=== PATIENT | female | born 1975 | race Caucasian/White ===

== ENCOUNTER → 2019-12-22 11:35 | Outpatient (CLI) | payer BC, SELFPAY ==
--- NOTE | ~2019-12-22 | XR_ITS ---
EXAMINATION: XR wrist LT min 3V DATE: 12/22/2019 11:46 INDICATION: Left wrist pain. Fall. TECHNIQUE: 4 views of left wrist were obtained. COMPARISON: None. FINDINGS: Bone alignment is normal. No fracture. 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 IMPRESSION: 1. No fracture. Reviewed, dictated and finalized at location A. CAL RADIATION DOSIMETRIST IMPRESSION: 1. No fracture.
== END ==
PROVIDERS: PCP Physician Assistant; Visit Provider Physician Assistant
DX: M25.532 Pain in left wrist (principal)
CPT/HCPCS: 73110

== ENCOUNTER → 2020-09-01 17:54 | Outpatient (CLI) | payer BC, SELFPAY ==
--- NOTE | ~2020-09-01 | MM_ITS ---
EXAMINATION: MM screening fabi BI w katja HISTORY: Screening TECHNIQUE: Craniocaudal and mediolateral oblique 3-D tomosynthesis images were obtained and synthetic 2-D images were generated. CAD analysis was submitted and interpreted. COMPARISON: Comparison to multiple prior studies sequentially, with oldest reviewed study dated 05/05. BREAST PARENCHYMAL COMPOSITION: There are scattered areas of fibroglandular density. FINDINGS: There is no evidence of suspicious mass, calcification, or architectural distortion to sugg est malignancy in either breast. There has been no suspicious interval change. IMPRESSION: 1. No mammographic evidence of malignancy. 2. Recommend routine screening mammography in one year. BI-RADS Category 1: Negative Reviewed, dictated and finalized at location A.
== END ==
PROVIDERS: PCP Family Medicine; Visit Provider Nurse Practitioner Obstetrics & Gynecology
DX: Z12.31 Encounter for screening mammogram for malignant neoplasm of breast (principal)
CPT/HCPCS: 77063; 77067

== ENCOUNTER 2021-03-28 13:31 | Outpatient (CLI) | payer BC, SELFPAY ==
--- NOTE | ~2021-03-28 | MMUS_ITS ---
EXAMINATION: MM diagnostic fabi LT w katja, US breast LT limited HISTORY: Palpable lump at the 6:00 location of the left breast. TECHNIQUE: Craniocaudal, mediolateral, and mediolateral oblique 3-D tomosynthesis images of the left breast were performed and synthetic 2-D images were generated. CAD analysis was submitted and interpr eted. High resolution limited left breast ultrasound was performed. COMPARISON: 09/01/2020, 07/29/2019, 07/07/2018, 06/14/2017 BREAST PARENCHYMAL COMPOSITION: There are scattered areas of fibroglandular density. FINDINGS: MAMMOGRAPHIC FINDINGS: No mammographic correlate identified for the reported palpable abnormality of the left breast. There is no suspicious mass, calcification, or architectural distortion. ULTRASOUND: There is no evidence of focal abnormal solid or cystic mass in the vicinity of the reported palpable abnormality of concern. IMPRESSION: 1. No specific mammographic or sonographic correlate is identified for the reported palpable abnormal ity of concern. Further evaluation at this time should be based on clinical assessment. Continued fol low-up physical examination is recommended. 2. Recommend routine screening mammography. BI-RADS Category 1: Negative Reviewed, dictated and finalized at location A. IMPRESSION: 1. No specific mammographic or sonographic correlate is identified for the repo rted palpable abnormality of concern. Further evaluation at this time should be based on clinical assessment. Continued follow-up physical examination is christiano mmended. 2. Recommend routine screening mammography. BI-RADS Category 1: Negative
== END 2021-03-28 13:32 | disposition home or self-care (01) ==
LOC: ANHIMG 13:34
PROVIDERS: PCP Family Medicine; Visit Provider Nurse Practitioner Obstetrics & Gynecology
DX: N63.20 Unspecified lump in the left breast, unspecified quadrant (principal)
CPT/HCPCS: 76642; 77061; 77065; G0279

== ENCOUNTER → 2021-09-15 12:50 | Outpatient (CLI) | payer BC, SELFPAY ==
--- NOTE | ~2021-09-15 | MM_ITS ---
EXAMINATION: MM screening fabi BI w katja HISTORY: Screening mammogram TECHNIQUE: Craniocaudal and mediolateral oblique 3-D tomosynthesis images were obtained and synthetic 2-D images were generated. CAD analysis was submitted and interpreted. COMPARISON: 03/28/2021 diagnostic left mammogram and limited left breast ultrasound 09/01/2020, 07/29/2019, 07/07/2018 bilateral screening mammogram examinations BREAST PARENCHYMAL COMPOSITION: There are scattered areas of fibroglandular density. FINDINGS: There is no evidence of suspicious mass, calcification, or architectural distortion to sugg est malignancy in either breast. There has been no suspicious interval change. IMPRESSION: 1. No mammographic evidence of malignancy. 2. Recommend routine screening mammography in one year. BI-RADS Category 1: Negative Reviewed, dictated and finalized at location A.
== END ==
PROVIDERS: Visit Provider Nurse Practitioner Obstetrics & Gynecology
DX: Z12.31 Encounter for screening mammogram for malignant neoplasm of breast (principal)
CPT/HCPCS: 77063; 77067

== ENCOUNTER 2021-11-21 00:06 | Day surgery (SDC) | payer OTHER, SELFPAY ==
[2021-10-26 09:22] VITALS: BMI 35.3
--- NOTE | 2021-11-06 13:34 | PC.NURSE ---
Spoke with pt re rescheduled colonoscopy. Pt confirmed no changes to home medications or health history since previous PAT phone call completed on 10/26/2021. Pt verbalized understanding of updated arrival/procedure times.
--- NOTE | 2021-11-21 12:13 | WPDGICN ---
Assessment and Plan Assessment and plan (1) Family history of colonic polyps: Code(s): Z83.71 - Family history of colonic polyps Status: Acute Assessment and Plan: Patient has a family history of colon polyps in her mother colon cancer in her grandmother. Neoplasia screening advised. Further recommendations will be given after endoscopy. GI Consult Note Consult date/time: 11/21/21 12:13 HPI: Sarai Varner is a 46 year old female Presents for screening colonoscopy. Patient's current weight appetite bowel movements are normal. She denies abdominal pain. She has had no bleeding. She states her bowel habits are normal aside from preparation for endoscopy. Family history is significant her grandmother had colon cancer mother had colon polyps. She presents today for neoplasia screening. Review of Systems Review of Systems: All systems reviewed & are unremarkable except as noted in HPI and below PMFSH Social History Social History Smoking status: Never smoker Alcohol intake: never Substance use: never Substance use type: does not use Living arrangements: with family Spiritual care concerns: No Meds Home Medications and Allergies Home Medications Medication Instructions Recorded Confirmed Type ibuprofen 400 mg PO DAILY 10/26/21 11/06/21 History montelukast 10 mg PO DAILY 10/26/21 11/06/21 History venlafaxine 37.5 mg PO DAILY 10/26/21 11/06/21 History zolmitriptan 5 mg PO DAILY 10/26/21 11/06/21 History Allergies Allergy/AdvReac Type Severity Reaction Status Date / Time doxycycline Allergy Intermediate HEADACHE,SEVERE Verified 11/06/21 13:33 N&V BEE STINGS Allergy Intermediate SWELLING Uncoded 11/06/21 13:33 ENVIRONMENTAL ALLERGIES Allergy Mild Sneezing Uncoded 11/06/21 13:33 SHELLFISH Allergy SEVERE N&V Uncoded 11/06/21 13:33 Exam Narrative: Physical exam reveals patient to be alert oriented x3 HEENT exam unremarkable. Patient is anicteric. Lungs are clear to auscultation and percussion. Heart is without murmur or extra sounds. Abdominal exam bowel sounds present soft nontender with no organomegaly. Digital external rectal exam is normal.
[2021-11-21 12:20] VITALS: BP 132/79; PULSE 115; RESP 20; TEMP 36.8; O2SAT 100; BMI 35.1
[2021-11-21] MEDS: LACTATED RINGERS 1,000 ML 150 ML IV CONT (12:29)
--- NOTE | 2021-11-21 12:29 | WPDANESEPPF ---
Anes - Initial Pre Proc Eval Procedure: Operation Date: 11/21/21 13:30 Proposed Procedures p Colonoscopy - Riky Cruz MD Date/Time: 11/21/21 12:29 Surgeon: Riky Cruz MD Pre Op Diagnosis: diarrhea, IBS Patient Data Age: 46 Gender: F Height: 1.52 m Weight: 81.5 kg Last Vital Signs Temp 36.8 C 11/21/21 12:20 Pulse 115 H 11/21/21 12:20 Resp 20 11/21/21 12:20 BP 132/79 11/21/21 12:20 Pulse Ox 100 11/21/21 12:20 Allergies Allergy/AdvReac Type Severity Reaction Status Date / Time doxycycline Allergy Intermediate HEADACHE,SEVERE Verified 11/06/21 13:33 N&V BEE STINGS Allergy Intermediate SWELLING Uncoded 11/06/21 13:33 ENVIRONMENTAL ALLERGIES Allergy Mild Sneezing Uncoded 11/06/21 13:33 SHELLFISH Allergy SEVERE N&V Uncoded 11/06/21 13:33 Home Medications Medication Instructions Recorded Confirmed Type ibuprofen 400 mg PO DAILY 10/26/21 11/06/21 History montelukast 10 mg PO DAILY 10/26/21 11/06/21 History venlafaxine 37.5 mg PO DAILY 10/26/21 11/06/21 History zolmitriptan 5 mg PO DAILY 10/26/21 11/06/21 History Patient hx anesthesia problems: none Family hx anesthesia problems: none Results Review: All pre-operative results and documents have been reviewed as part of the pre-operative evaluation. [facility] Past Medical History Medical History (Updated 11/21/21 @ 12:30 by Marbin Cox DO) Anxiety Migraine Social History Social History Smoking status: Never smoker Alcohol intake: never Substance use: never Substance use type: does not use Living arrangements: with family Spiritual care concerns: No Anes - Eval Final PreProcedure Day of Procedure 11/21/21 12:29 Patient weight: obese Heart: regular rate and rhythm Lungs: clear to auscultation and normal air movement Airway: Mallampati scale class II Neurological: alert and oriented Last oral intake: >/= 8 hours ASA classification: II Emergent: no Anesthetic plan: proceed Anesthesia type and monitoring: general GIVS and standard monitoring Results Review: All pre-operative results and documents have been reviewed as part of the pre-operative evaluation. Informed Consent: The patient's anesthetic plan and its attendant risks and benefits were discussed with the patient/family/POA. Questions were solicited and answers provided to the satisfaction of the patient/family/POA.
[2021-11-21 13:36] VITALS: BP 102/74; PULSE 100; RESP 29; O2SAT 100
[2021-11-21 13:46] VITALS: BP 121/85; PULSE 101; RESP 18; O2SAT 100
[2021-11-21 13:56] VITALS: BP 118/85; PULSE 98; RESP 18; O2SAT 100
== END 2021-11-21 14:09 | disposition home or self-care (01) ==
PROVIDERS: PCP Family Medicine; Visit Provider Internal Medicine Gastroenterology
PROC: 0DJD8ZZ Inspection of Lower Intestinal Tract, Via Natural or Artificial Opening Endoscopic (ICD-10-PCS; CPT 45378; principal; 2021-11-21 13:30)
DX: Z12.11 Encounter for screening for malignant neoplasm of colon (principal); Z83.71 Family history of colonic polyps; R19.7 Diarrhea, unspecified; F41.9 Anxiety disorder, unspecified; K58.9 Irritable bowel syndrome, unspecified; E66.9 Obesity, unspecified; Z68.35 Body mass index [BMI] 35.0-35.9, adult
CPT/HCPCS: 45378; J2704; J7120

== ENCOUNTER → 2021-12-16 00:54 | Outpatient (CLI) | payer OTHER, SELFPAY ==
[2021-12-16 17:11] LABS: SARS-CoV-2 RNA PCR Negative
== END ==
PROVIDERS: PCP Family Medicine; Visit Provider Physician Assistant
DX: R68.89 Other general symptoms and signs (principal); Z20.822 Contact with and (suspected) exposure to COVID-19
CPT/HCPCS: C9803; U0003; U0005

== ENCOUNTER → 2022-04-17 16:42 | Outpatient (CLI) | payer OTHER, SELFPAY ==
--- NOTE | ~2022-04-17 | XR_ITS ---
EXAMINATION: XR hand LT min 3V INDICATION: Left and pain TECHNIQUE: Three views of the left hand are obtained. COMPARISON: 12/22/2019 FINDINGS: There is unchanged mild osteoarthritis at the first metacarpophalangeal joint. Bone alignme nt is normal. There is no fracture. The soft tissues are unremarkable. IMPRESSION: 1. No acute osseous abnormality. Reviewed, dictated and finalized at location F.
--- NOTE | ~2022-04-17 | XR_ITS ---
EXAMINATION: XR wrist LT min 3V DATE: 04/17/2022 17:00 INDICATION: Left wrist pain TECHNIQUE: Posteroanterior, ulnar deviation, oblique, and lateral views of the left wrist were obtain ed. COMPARISON: 12/22/2019 FINDINGS: Bone alignment is normal. There is no fracture. The soft tissues are unremarkable. IMPRESSION: 1. No acute osseous abnormality. Reviewed, dictated and finalized at location F.
== END ==
PROVIDERS: PCP Family Medicine; Visit Provider Family Medicine
DX: M25.532 Pain in left wrist (principal)
CPT/HCPCS: 73110; 73130

== ENCOUNTER → 2022-12-12 12:24 | Outpatient (CLI) | payer OTHER, SELFPAY ==
--- NOTE | ~2022-12-12 | MM_ITS ---
EXAMINATION: MM screening fabi BI w katja HISTORY: Screening mammogram TECHNIQUE: Craniocaudal and mediolateral oblique 3-D tomosynthesis images were obtained and synthetic 2-D images were generated. CAD analysis was submitted and interpreted. COMPARISON: 09/15/2021 bilateral screening mammogram 03/28/2021 diagnostic left mammogram and limited left breast ultrasound 09/01/2020 bilateral screening mammogram BREAST PARENCHYMAL COMPOSITION: There are scattered areas of fibroglandular density. FINDINGS: There is no evidence of suspicious mass, calcification, or architectural distortion to sugg est malignancy in either breast. There has been no suspicious interval change. IMPRESSION: 1. No mammographic evidence of malignancy. 2. Recommend routine screening mammography in one year. BI-RADS Category 1: Negative Reviewed, dictated and finalized at location A. 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
== END ==
PROVIDERS: PCP Family Medicine; Visit Provider Nurse Practitioner Obstetrics & Gynecology
DX: Z12.31 Encounter for screening mammogram for malignant neoplasm of breast (principal)
CPT/HCPCS: 77063; 77067

== ENCOUNTER 2023-06-26 17:02 | Outpatient (CLI) | payer OTHER, SELFPAY ==
--- NOTE | ~2023-06-26 | US_ITS ---
EXAMINATION: US venous doppler [facility] DATE: 06/26/2023 17:49 INDICATION: deep vein thrombosis . TECHNIQUE: Grayscale images without and with compression and Doppler images of the left lower extremi ty veins were obtained. COMPARISON: None FINDINGS: The left common femoral vein, profunda (deep) femoral vein, femoral vein, popliteal vein, peroneal v ein, posterior tibial veins, gastrocnemius vein, and greater saphenous vein are patent. IMPRESSION: Patent left lower extremity veins. No evidence of deep venous thrombosis. Reviewed, dictated and finalized at location K.
== END 2023-06-26 17:03 | disposition home or self-care (01) ==
PROVIDERS: PCP Family Medicine; Visit Provider Physician Assistant
DX: I82.409 Acute embolism and thrombosis of unspecified deep veins of unspecified lower extremity (principal)
CPT/HCPCS: 93971

== ENCOUNTER 2024-02-27 10:46 | Outpatient (CLI) | payer OTHER, SELFPAY ==
--- NOTE | ~2024-02-27 | MM_ITS ---
EXAMINATION: MM screening fabi BI w katja HISTORY: Screening mammogram TECHNIQUE: Craniocaudal and mediolateral oblique 3-D tomosynthesis images were obtained and synthetic 2-D images were generated. CAD analysis was submitted and interpreted. COMPARISON: 12/12/2022, 09/15/2021 bilateral screening mammogram examinations BREAST PARENCHYMAL COMPOSITION: There are scattered areas of fibroglandular density. FINDINGS: Stable bilateral benign opacities. There is no evidence of suspicious mass, calcification, or architectural distortion to suggest malignancy in either breast. There has been no suspicious inte rval change. IMPRESSION: 1. No mammographic evidence of malignancy. 2. Recommend routine screening mammography in one year. BI-RADS Category 2: Benign finding(s). Reviewed, dictated and finalized at location A.
== END 2024-02-27 10:47 ==
PROVIDERS: PCP Nurse Practitioner Obstetrics & Gynecology; Visit Provider Nurse Practitioner Obstetrics & Gynecology
DX: Z12.31 Encounter for screening mammogram for malignant neoplasm of breast (principal)
CPT/HCPCS: 77063; 77067

== ENCOUNTER 2025-04-21 08:33 | Outpatient (CLI) | payer OTHER, SELFPAY ==
--- NOTE | ~2025-04-21 | MR_ITS ---
MRI of the right knee Clinical history: Meniscus tear Technique: Coronal proton density and proton density-weighted images, sagittal proton-density and T2 fat-sat images, and axial proton-density fat-saturated images were acquired. Findings: Anterior and posterior cruciate ligaments are intact. Medial collateral ligament and the la teral collateral ligament complex are intact. Popliteus tendon is intact. There is large radial tear at the posterior root of the medial meniscus. No lateral meniscal tear see n. There is mild to moderate chondromalacia at the patellar apex. There is patchy moderate chondral vianney liza extensively involving the femoral trochlea. There is extensive high-grade chondromalacia on both sides of the medial compartment. There is minimal chondral thinning at the lateral joint line. Small tricompartmental osteophytes are present. Extensor mechanism is intact. No significant joint effusion or Ellis's cyst. Impression: Large radial tear at the posterior root of the medial meniscus. 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 Extensive high-grade chondro malacia of the medial compartment. Please see details above. Reviewed, dictated and finalized at location . Impression: Large radial tear at the posterior root of the medial meniscus. 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 Extens humza high-grade chondromalacia of the medial compartment. Please see details abo ve.
== END 2025-04-21 08:34 | disposition home or self-care (01) ==
PROVIDERS: PCP Family Medicine; Visit Provider Orthopaedic Surgery
DX: S83.241A Other tear of medial meniscus, current injury, right knee, initial encounter (principal); M94.261 Chondromalacia, right knee; X58.XXXA Exposure to other specified factors, initial encounter
CPT/HCPCS: 73721

== ENCOUNTER 2025-05-10 13:54 | Outpatient (CLI) | payer OTHER, SELFPAY ==
--- NOTE | ~2025-05-10 | MM_ITS ---
EXAMINATION: MM screening [facility] BI w katja HISTORY: Screening mammogram TECHNIQUE: Craniocaudal and mediolateral oblique 3-D tomosynthesis images were obtained and synthetic 2-D images were generated. CAD analysis was submitted and interpreted. COMPARISON: 02/27/2024, 12/12/2022, 09/15/2021 BREAST PARENCHYMAL COMPOSITION:Not Dense. There are scattered areas of fibroglandular density. FINDINGS: No suspicious mass, calcification, or architectural distortion are identified in either makayla ast to suggest malignancy. There has been no suspicious interval change. IMPRESSION: No mammographic evidence of malignancy. Recommend routine screening mammography in one year. BI-RADS Category 1: Negative Reviewed, dictated and finalized at location .
== END 2025-05-10 13:55 | disposition home or self-care (01) ==
LOC: MICIMG 13:55
PROVIDERS: PCP Family Medicine; Visit Provider Nurse Practitioner
DX: Z12.31 Encounter for screening mammogram for malignant neoplasm of breast (principal)
CPT/HCPCS: 77063; 77067

== ENCOUNTER 2025-06-04 00:47 | Day surgery (SDC) | payer OTHER, SELFPAY ==
[2025-06-02 14:46] VITALS: BMI 38.3
--- NOTE | 2025-06-02 15:14 | PC.NURSE ---
Report to the Outpatient Waiting Room, entrance under the green pavilion located off [facility], at time 07:00AM on date _06/04/25 . Planned Procedure Time: _09:00AM .? Time changes happen often and if your time is changed the preop area will call you the afternoon before. - You and your visitor will be asked to self-screen and do not enter if you have any COVID symptoms. Please call surgeon if you need to reschedule. - A mask is optional within the hospital at this time. Patients may have clear liquids (water, carbonated beverages, clear teas, apple juice) until 3 hours prior to surgery with a maximum of 20 ounces. - No food from midnight until time of surgery and no smoking, or chewing tobacco (or any form of nicotine). No chewing gum, candy or mints. Take only the following medications with a SIP of water on the morning of surgery: _APRAZOLAM_; QULIPTA (IF DESIRED) DO NOT STOP ANY OF YOUR OTHER PRESCRIPTION MEDICATIONS PRIOR TO SURGERY EXCEPT THE FOLLOWING Hold all vitamins and supplements for 3 days per anesthesiologist. Medications to discontinue per physician Date to take last dose Please no make-up, nail occitan, hairspray, perfume, deodorant, or body powder the day of surgery.? No jewelry (including any body piercings) or valuables the day of surgery, leave them at home.? Please take a shower or bath the night before, or the morning of, surgery with an antibacterial soap.? Wear comfortable, loose fitting clothing.? - Jewelry must be removed prior to entering the operating room.? Rings and piercings that are not removed may be cut off. - The hospital will not accept responsibility for valuables.? - Please leave all valuables, including medications, at home the day of surgery. If you are going home after surgery, a licensed truck driver's offsider must drive you home.? - NO public transportation without another adult if you receive anesthesia. - We recommend that an adult stay with you for 24 hours following discharge. - We also recommend that you do not drive, make important decision, drink alcoholic beverages, or take any drugs that were not prescribed by your health care provider for at least 24 hours after your discharge time. Follow any additional instructions given to you from your surgeon. Telephone instructions given to _FEBRUARY and asked if any additional questions and then verbalized understanding. Patient advised to call surgeon office or pre surgery nurse liaison [phone] if any additional questions.
[2025-06-04] VITALS (10 sets, daily range): BP systolic 122–142; BP diastolic 57–78; PULSE 77–95; RESP 15–18; TEMP 36.2–37.1; O2SAT 97–100; BMI 38.5
--- OUTSIDE RECORDS SUMMARY | 2025-06-04 00:48 | XMS_ITS | Data Portability ---
Author Organization [place] [facility] [place] [facility], Main Office Address [address] [place] [address] Care Team Providers Care [employer] Science Tutor Name Role Phone ANTONIA LISA Primary Care Provider ANTONIA LISA Referring Provider Assessment Encounter Date Assessment Date Assessment LastModified by Organization Details LastModified Time 02/07/2023 02/07/2023 Patient returns knee pain right. She has an MRI scan that shows meniscal tear and symptoms suggesting that she has mechanical catching and locking in the knee and would like to proceed with arthroscopic intervention. She has failed conservative treatment will proceed per her request discussed risks benefits limitations and alternatives in detail. [email or web address] Not available 02/07/2023 11:21:11 03/19/2023 03/19/2023 Patient returns status post knee arthroscopy right. She had a tear posteriorly which I debrided she has got fairly significant degenerative change in the knee in the patellofemoral early as well as medially this is probably going to predispose her to knee replacement surgery at some point of note is the fact she is morbidly obese with a BMI of 40 and with the arthritis she has young age she needs to work on getting some weight down and avoid impact loading. We discussed this in detail I will see her back on an as-needed basis. The standpoint of her right knee at this point she can be dismissed. [email or web address] Not available 03/19/2023 14:54:11 09/05/2023 09/05/2023 The patient has [id number] primary osteoarthritis of the right knee joint she has had a previous knee arthroscopy partial medial meniscectomy was doing well until a new twisting injury to the knee. Talked about treatment options today in detail for now I have recommended a shot of cortisone and oral prednisone to see if we can calm down the pain. Hopefully she has just started up some osteoarthritis. Under sterile conditions I injected the patient's right knee joint in the office with 4 cc 0.5% ropivacaine and 20 mg of Kenalog. Patient tolerated the procedure well. I will see her back in a month if her symptoms continue to be significant we can talk about doing gel shots versus repeat MRI scan to see if she has a new meniscal injury. We will see how it goes. She can restart ibuprofen 800 mg t.i.d. after the prednisone is done we will get her prescription for this today. She voiced understanding and agrees above plan she will call for any further problems difficulties or questions. Not available 09/05/2023 14:37:09 10/03/2023 10/03/2023 The patient has resolving right knee pain as described. She does have some primary osteoarthritis no signs of a new meniscal tear noted today she is doing better after treatment. She states it is livable she is going to continue to use ibuprofen she will have her liver and kidney functions checked by her primary care physician if she continues to take these long-term. We talked about this in detail today. She will use ice and activity modification as necessary as well for now she is dismissed if she starts to have mechanical symptoms swelling or worsening pain she will call she voiced understanding agrees above plan she will call for any further problems difficulties or questions. Not available 10/03/2023 10:47:31 10/26/2024 10/26/2024 By today's x-ray and exam the patient is noted to have moderate primary osteoarthritis of the right knee more mild on the left. She does have some narrowing in the medial compartments of both knees as well as mild lateral facet wear and very small marginal osteophytes noted around the medial and lateral portions of the patellofemoral articulations. We talked about treatment options today in detail she would like to proceed with similar treatment to what she had for her right knee last year. At her request under sterile conditions I injected the patient's right knee joint in the office today with 4 cc 0.5% bupivacaine and 20 mg of Kenalog. Patient tolerated the procedure well. We will do a course of oral prednisone followed by ibuprofen 800 mg t.i.d. with food she will take this on a regular basis for at least a month. She will use it p.r.n. after that. She did very well with treatment for her right knee last year hopefully she will get the same benefit now with her left knee. She is aware that she has significant changes in the knee degenerative in nature and this could progress with time. Weight loss would certainly help also low impact exercise. I will see her back as needed we can do this again in 3 months if necessary. She voiced understanding agrees with the above plan she will call for any further problems difficulties or questions. We talked about low-impact exercise in detail today is a better option for her rather than walking for exercise Not available 10/26/2024 10:51:27 Plan of Treatment Reminders Order Date Submit Date Provider Last Modified By Organization Details Last Modified Time Details Appointments None recorded. Lab None recorded. Referral None recorded. Procedures injection/a spiration joint/bursa (PROC) 2023 024 [email or web address] In-Office Order, Internal Use Only DO Not Attach Compendium DO Not Attach Compendium, Do Not Delete/merge, [id number] 4 10:42:39 injection/a spiration joint/bursa (PROC) - in office procedure, administere d by provider 2022 023 [email or web address] In-Office Order, Internal Use Only DO Not Attach Compendium DO Not Attach Compendium, Do Not Delete/merge, [id number] 3 14:31:47 Surgeries knee arthroscopy with medial meniscectom y (SURG) 2022 023 [email or web address] [facility], [address] [place] [address], [address], 3 10:00:44 Imaging XR, knee 2023 024 [email or web address] [facility] [place], [address] [facility] [address], [place], [address], 4 11:28:24 Medication Orders prednisone 10 mg tablets in a dose pack [address] [id number], [address] [facility], [place], [place], [id number], 4 11:28:24 ibuprofen 800 mg tablet [address] [facility]95612, [address] [facility], [place], [place], [id number], 4 11:28:24 bupivacaine HCl 0.5 % (5 mg/mL) injection solution [address] [facility]04899, [address] [facility], [place], [place], [id number], 4 11:28:24 Kenalog 10 mg/mL suspension for injection [address] [facility]33705, [address] [facility], [place], [place], [id number], 4 11:28:24 Kenalog 10 mg/mL suspension for injection [address] [facility]34685, [address] [facility], [place], [place], [id number], 3 15:39:35 ropivacaine (PF) 5 mg/mL (0.5 %) injection solution [address] [facility]07358, [address] [facility], [place], [place], [id number], 3 15:39:35 prednisone 10 mg tablets in a dose pack 2022 023 [email or web address] [facility] #[id number], [address] [facility], [place], [place], [id number], 4 10:16:30 Patient TargetsNo targets recorded. Patient InstructionsNo instructions recorded. Reason for Referral None Reported. Results Created Date Observation Date Name Description Value Unit Range Abnormal Flag Note LastModifiedBy Organization Detail LastModifiedTime 01/25/20 23 XR, knee No observ ation record ed. [email or web address] [facility] [place] [address], [place], [address], 01/24/2023 10:56:30 01/31/20 23 01/29/2023 MRI, knee, w/o contr ast No observ ation record ed. [email or web address] [facility] [address], [place], [address], 01/30/2023 20:57:21 10/26/20 24 XR, knee No observ ation record ed. [email or web address] [facility] [place] [address], [place], [address], 10/26/2024 10:52:31 Result Notes None recorded. Problems Name Problem SNOMED Code Status Onset Date Resolution Date Notes Provider Name and Address Organization Details Recorded Time Pain of right knee joint 5438755071205 00 Active 2022 Anjelica Mauricio , ATC L null, [employer] 3 10:37:02 Tear of medial meniscus of knee 277347222 Active 2022 Nilton Pate MD [address], [address], [place], [address], [employer] 3 10:57:05 Morbid obesity 254443589 Active 2022 Nilton Pate MD [address], [address], [place], [address], [employer] 3 14:54:15 Osteoarthri tis of right knee joint 1913816353045 00 Active 2022 CRISTINA Malik [address], [place], [address], [employer] 3 14:37:18 Pain of left knee joint 4351893418403 07 [facility] 2023 [facility] [employer] [facility] 4 10:18:04 Bilateral osteoarthri tis of knees 5458667167339 07 Active 2023 CRISTINA Malik [address] [facility], [facility] [address], [place], [address], [facility] [employer] [facility] 4 10:52:42 Problem Notes None recorded. Procedures Surgical History Date Name Laterality Status Provider Name and Address Organization Details Recorded Time 3 Ortho - Cortisone Injection completed Nilton Pate MD [address] [facility], [facility] [address], [place], [address], [facility] [employer] [facility] 01/24/2023 10:55:21 Imaging Results None recorded. Procedure Notes None recorded. Medical Equipment None Reported. Allergies Allergen ID Allergen Name Allergen Category Reaction Reaction Severity Criticality Documentation Date Start Date Code Code System Note Provider Name and Address Organization Details Recorded Time 96507 hydrocodo ne Not available Not available Not available Not available 01/16/2023 5489 RxNorm Not Available [facility] 3 16:13:08 02386 doxycycli ne Not available Not available Not available Not available 01/16/2023 3640 RxNorm Not Available [facility] 3 16:13:08 01803 codeine medicatio n headache Not available Not available 10/26/2024 2670 RxNorm Meagan smith [facility] [employer] [facility] 4 10:15:52 Medications Name Sig Start Date Stop Date Status Note LastModified by Organization Details LastModified Time amoxicillin 500 mg capsule 09/05 completed Not Available Not Available Not Available promethazin e-DM 6.25 mg-15 mg/5 mL oral syrup TAKE 5 ML BY MOUTH EVERY 6 HOURS NEEDED FOR COUGH. MAX 30 ML / 24 HOUR 01/24 completed Not Available Not Available Not Available venlafaxine ER 37.5 mg capsule,ext ended release 24 hr TAKE 1 CAPSULE BY MOUTH EVERY DAY 10/26 completed Not Available Not Available Not Available prednisone 10 mg tablet active Not Available Not Available Not Available cefuroxime axetil 250 mg tablet 09/05 completed Not Available Not Available Not Available ketoconazol e 2 % shampoo SHAMPOO NECK/ FACE DAILY 10/26 completed Not Available Not Available Not Available trazodone 50 mg tablet TAKE 2 TABLETS BY MOUTH EVERY DAY AT BEDTIME 10/26 completed Not Available Not Available Not Available ibuprofen 800 mg tablet TAKE 1 TABLET BY MOUTH THREE TIMES DAILY active Not Available Not Available No t Available hydrocodone 5 mg-acetamin ophen 325 mg tablet 09/05 completed Not Available Not Available Not Available meloxicam 15 mg tablet 09/05 completed Not Available Not Available Not Available bupivacaine HCl 0.5 % (5 mg/mL) injection solution Take 20 mg by injection route. 2023 active Not Available Not Available Not Avai lable topiramate 25 mg tablet TK 2 TS PO BID 01/24 completed Not Available Not Available Not Available zolmitripta n 5 mg tablet 09/05 completed Not Available Not Available Not Available prednisone 10 mg tablets in a dose pack Take 1 tab by mouth, 3 times a day for 3 daysTake 1 tab by mouth 2 times a day for 2 daysTake 1 tab by mouth once a day for 1 day 2023 active Not Available Not Available Not Avai lable cefadroxil 500 mg capsule 09/05 completed Not Available Not Available Not Available alprazolam 0.5 mg tablet TAKE 1 TABLET BY MOUTH DAILY NEEDED FOR ANXIETY active Not Available Not Available No t Available propranolol 40 mg tablet 01/24 completed Not Available Not Available Not Available amoxicillin 875 mg tablet 09/05 completed Not Available Not Available Not Available citalopram 20 mg tablet Take 1 tablet every day by oral route. 01/24 completed Not Available Not Available Not Available prednisolon e acetate 1 % eye drops,suspe nsion 09/05 completed Not Available Not Available Not Available Kenalog 10 mg/mL suspension for injection Take 20 mg by injection route. 2023 active [facility]: 0003- 0494- 20 Not Available Not Available Not Available cephalexin 500 mg capsule TAKE 1 CAPSULE BY MOUTH TWICE DAILY FOR 10 DAYS active Not Available Not Available No t Available paroxetine 20 mg tablet TK 1 T PO QD 01/24 completed Not Available Not Available Not Available oseltamivir 75 mg capsule TK 1 C PO BID FOR 5 DAYS 01/24 completed Not Available Not Available Not Available tobramycin 0.3 % eye drops 09/05 completed Not Available Not Available Not Available propranolol ER 80 mg capsule,24 hr,extended release 10/26 completed Not Available Not Available Not Available montelukast 10 mg tablet TAKE 1 TABLET BY MOUTH DAILY IN THE EVENING active Not Available Not Available No t Available zolpidem 5 mg tablet 01/24 completed Not Available Not Available Not Available hydroxychlo roquine 200 mg tablet TAKE 1 TABLET BY MOUTH EVERY DAY 10/26 completed Not Available Not Available Not Available cefuroxime axetil 500 mg tablet TAKE 1 TABLET BY MOUTH EVERY 12 HOURS FOR 10 DAYS 10/26 completed Not Available Not Available Not Available piroxicam 20 mg capsule 01/24 completed Not Available Not Available Not Available naratriptan 2.5 mg tablet 01/24 completed Not Available Not Available Not Available amoxicillin 875 mg-potassiu m clavulanate 125 mg tablet TAKE 1 TABLET BY MOUTH EVERY 12 HOURS FOR 10 DAYS 01/24 completed Not Available Not Available Not Available clindamycin phosphate 1 % topical solution APPLY TO FACE TWICE DAILY NEEDED 10/26 completed Not Available Not Available Not Available escitalopra m 10 mg tablet TAKE 1 TABLET BY MOUTH DAILY active Not Available Not Available No t Available Sprintec (28) 0.25 mg-0.035 mg tablet 09/05 completed Not Available Not Available Not Available azelaic acid 15 % topical gel APPLY TO FACE TWICE DAILY 10/26 completed Not Available Not Available Not Available Prempro 0.45 mg-1.5 mg tablet TAKE 1 TABLET BY MOUTH DAILY 10/26 completed Not Available Not Available Not Available topiramate 50 mg tablet 01/24 completed Not Available Not Available Not Available tizanidine 4 mg capsule 09/05 completed Not Available Not Available Not Available metronidazo le 1 % topical gel 09/05 completed Not Available Not Available Not Available lidocaine (PF) 10 mg/mL (1 %) injection solution In office injection administe red by the provider 01/24 completed [facility]: 0409- 4276- 17 Not Available Not Available Not Available CitraNatal Assure 35 mg-1 mg-50 mg-300 mg oral pack 09/05 completed Not Available Not Available Not Available gatifloxaci n 0.5 % eye drops active Not Available Not Available Not Available ropivacaine (PF) 5 mg/mL (0.5 %) injection solution Take 20 mg by injection route. 2022 active [facility] [address]- 01 Not Available Not Available Not Available Soolantra 1 % topical cream NABEEL BID 01/24 completed Not Available Not Available Not Available Finacea 15 % topical foam NABEEL TO FACE BID 09/05 completed Not Available Not Available Not Available Qulipta 60 mg tablet TAKE 1 TABLET BY MOUTH DAILY active Not Available Not Available No t Available Paxlovid 300 mg (150 mg x 2)-100 mg tablets in a dose pack TAKE TWO 150MG TABLETS AND ONE 100MG TABLET BY MOUTH TWICE DAILY FOR 5 DAYS 01/24 completed Not Available Not Available Not Available Vitals Date Recorded Body height Body mass index (BMI) Body weight Provider Name and Address Organization Details Last Updated DateTime 02/07/2023 152.4 cm 40 kg/m2 69609.44 g Jada Greenecharmaine [employer] 02/07/2023 10:02:31 Date Recorded Body height Body mass index (BMI) Body weight Provider Name and Address Organization Details Last Updated DateTime 03/19/2023 152.4 cm 40 kg/m2 43582.44 g Jada Mayra, [employer] 03/19/2023 14:16:27 Date Recorded Body height Body mass index (BMI) Body weight Provider Name and Address Organization Details Last Updated DateTime 09/05/2023 152.4 cm 40 kg/m2 46138.44 g Jada Mayra, [employer] 09/05/2023 14:08:52 Date Recorded Body height Provider Name an d Address Organization Details Last Updated DateTime 10/03/2023 152.4 cm Meagan Mirandamons [employer] 10/03/2023 10:32:11 Date Recorded Body height Body mass index (BMI) Body weight Provider Name and Address Organization Details Last Updated DateTime 10/26/2024 152.4 cm 39.1 kg/m2 76469.47 g Meagan Hahn [place] [facility] 10/26/2024 10:15:25 Social History None recorded. Functional Status Question Answer Note LastModified by Organization D etails LastModified Time What is your level of alcohol consumption? None Information not available 01/24/2023 Mental Status None recorded. Family History Relationship Description Onset Age of this Age Resolved Age Notes LastModified by Organization Details LastModified Time Unspecified Relation Heart disease grandp arents Not available 01/24/2023 10:35:33 Unspecified Relation Diabetes mellitus grandm a Not available 01/24/2023 10:36:12 Mother Hypertensive disorder Not available 07/2023 10:35:51 Medical History Condition Response ARTHRITIS Y Gynecological HistoryNo gynecological history recorded. Obstetrics History GPAL:G 0 P 0 0 0 0 Past Encounters Encounter ID Performer Location Encounter Start Date Encounter Closed Date Diagnosis/Indication Diagnosis SNOMED-CT Code Diagnosis ICD10 Code Diagnosis Note [id number] Nilton Pate MD [facility] [place] [address] [place] [address] 01/24/2023 10:17:04 01/24/2023 11:05:08 Pain of right knee joint 7088719100 07558 M25.561 Tear of me dial meniscus of knee 429272593 S83.241A [id number] Nilton Pate MD [facility] [place] [address] [place] [address] 02/07/2023 09:58:07 02/07/2023 11:33:14 Pain of right knee joint 1113255359 87593 M25.561 Tear of me dial meniscus of knee 975377491 S83.241A [id number] Nilton Pate MD [facility] [place] [address] [place] [address] 03/19/2023 14:11:42 03/19/2023 15:21:11 Tear of medial meniscus of knee 041122450 S83.241A Postoperative visit 1836 37056 Z09 Morbid obesity 351783911 E66.01 [id number] Rico Law MD [facility] [place] [address] [place] [address] 09/05/2023 14:04:31 09/05/2023 14:34:36 Pain of right knee joint 3144915180 02100 M25.561 Tear of me dial meniscus of knee 203515036 S83.241A Osteoarthr itis of right knee joint 6514603273 71245 M17.11 [id number] Rico Law MD [facility] [place] [address] [place] [address] 10/03/2023 10:29:36 10/03/2023 10:44:22 Tear of medial meniscus of knee 486890414 S83.241A Osteoarthr itis of right knee joint 2678229039 05759 M17.11 Pain of ri ght knee joint 7765873874 75577 M25.147 [id number] Wesley Cooper MD [facility] [place] [address] [place] [address] 10/26/2024 10:00:05 10/26/2024 10:59:04 Pain of left knee joint 7482621331 28987 M25.562 Bilateral osteoarthritis of knees 0575812645 29568 M17.0 Health Concerns Section Related Observation LastModified by Organization Detai ls LastModified Time None Recorded Concern Status LastModified by Organization Details LastModified Time None Recorded Advance Directives Directive None Recorded Payers Insurance Date Sequence Insurance Name Policy Number Policy Kaplan Covered Member ID Kaplan Member ID Guarantor Name 10/26/[address] [facility] [id number] February Gardenia [id number] February Gardenia 01/23/2023 1 [facility]: OUT OF STATE - BLUE CARD [id number] Pedro Varner [id number] February Gardenia Notes Date Note Type Note Provider Name and Address Organization Details Recorded Time 02/07/2023 text/html Patient returns knee pain right. She remains symptomatic as catching locking and pain and mechanical symptoms in her right knee. Unfortunately she has not improved with conservative treatment. Nilton Pate MD [address] [place] [address], [address], [address], [facility] [employer] [facility] [employer] [facility] 02/07/2023 11:21:29 03/19/2023 text/html Patient returns status post knee arthroscopy right. Overall she is doing fine much of the pain is resolved she has a little swelling but she is getting around quite a bit better. Nilton Pate MD [address], [facility] [address], [place], [address], [facility] [employer] [facility] [employer] [facility] 03/19/2023 14:54:36 09/05/2023 text/html The patient retu rns with a new problem with her right knee. She had a knee arthroscopy in February of this year for partial medial meniscectomy she states it took a few months but her knee was finally feeling really good she was told at that time she did have primary osteoarthritis particularly the patellofemoral articulation she has some narrowing in the medial compartment as well. She was doing well until 2 weeks ago when she twisted on her knee felt a sudden pop since that time she has had significant pain in the medial compartment reports crepitation through the arc of motion no mateo locking or catching but certainly a catching sensation and pain medially. She walks with a limp states she has tried ibuprofen and activity modification without significant relief. She is worried that she has started her knee up again it does not calm down over the last 2 weeks she comes in today for initial evaluation treatment.Past medical history and previous x-rays reviewed in detail today with the patient. CRISTINA Malik [address], [facility] [address], [place], [address], [facility] [employer] [facility] [employer] [facility] 09/05/2023 14:37:44 10/03/2023 text/html Patient returns for recheck of her right knee. She had knee arthroscopy done by Dr. Pate earlier this year she then had a new injury when she twisted her knee and felt a sudden pop a lot of the pain was medially. She does have a lot of crepitation through the arc of motion in the subpatellar region she denied any mateo locking or catching but quite a bit of pain was walking with a limp. She had been on ibuprofen and used activity modification without significant relief. I saw her 1 month ago we did a shot of cortisone she took oral prednisone and resumed ibuprofen 800 mg t.i.d. with food. She states now her pain is about a 2 on a scale 1-10 when it is at its worst. Overall she states it is livable she knows she is always going to have some mild pain in the knee due to her pre-existing osteoarthritis. Overall has improved quite a bit comes in today for recheck and talk about further treatment options for the future if necessary. CRISTINA Malik [address] [facility], [place], [address], [place] [facility] 10/03/2023 10:47:46 10/26/2024 text/html Patient returns with a new problem today. She is complaining of left knee pain this has been ongoing for couple of months now and getting a little worse with time. Most of the pain is localized to the anterior and medial side of the left knee. I saw her I 1 year ago for her right knee for a similar issue. She was treated with cortisone and oral anti-inflammatory medication she did well with that. She states today her right knee is feeling pretty good now she has pain about a 5 on a scale of 1-10 in the left knee. Denies any specific trauma or injury she does do lots of walking she also walks her 85 lb dog which puts a lot of pull on the leash basically kind of drags her along. Sometimes after busy days she will note throbbing and aching medially also she sits for too long of a time her left knee will start to feel achy and stiff. When she gets up and gets moving it is a little better. She has tried [id number] Advil here and there she will take 2-4 pills a day. She has also tried icing but continues to have significant pain. She denies any locking or catching no mechanical symptoms she does note some grinding crepitation through the arc of motion but no swelling or effusion no sensation of instability. Despite conservative measures on her own at home her symptoms continue she comes in today for initial evaluation and treatment. The patient does have a history of bilateral knee arthroscopies her left knee with scope for partial medial meniscectomy back in 2013 the right knee was done in 2022. New past medical history sheet was reviewed and signed on the intake sheet of today's date drug allergies current medications family social history previous surgical history 10 point review of systems was reviewed and discussed in detail today with the patient. CRISTINA Malik [address] [facility], [facility] [address], [place], [id number], [facility] 10/26/2024 10:53:15 OBGyn Episode No OBEpisode recorded.
--- OUTSIDE RECORDS SUMMARY | 2025-06-04 00:48 | XMS_ITS | Data Portability ---
Author Organization [facility] Address [address] [place] [address] [place] [address] Care Team Providers Care Operations Research Manager Name Role Phone MARIA L ANTONIA Primary Care Provider [phone] Assessment Encounter Date Assessment Date Assessment LastModified by Organization Details LastModified Time 09/17/2022 09/17/2022 Annual gynecological exam performed. Patient will come back in a year unless there are new symptoms. Not available 09/17/2022 12:39:36 10/30/2023 10/30/2023 Annual gynecological exam performed. Patient will come back in a year unless there are new symptoms. [email or web address] Not available 10/30/2023 11:20:07 11/13/2024 11/13/2024 Annual gynecological exam performed. Patient will come back in a year unless there are new symptoms. Not available 11/13/2024 11:09:40 Plan of Treatment Reminders Order Date Submit Date Provider Last Modified By Organization Details Last Modified Time Details Appointments None recorded. Lab None recorded. Referral None recorded. Procedures None recorded. Surgeries None recorded. Imaging MAMMO, screening, digital, bilateral 2023 024 DESTINEY [facility], [address], [place], [address], 5 16:59:23 US, pelvis 2023 024 [email or web address] [facility], [address], [place], [address], 4 19:34:19 US, transvagina l 2023 024 [email or web address] [facility], [address], [address], [place], [address], 4 19:34:19 US, pelvis, complete 2023 024 [email or web address] [facility], [address], [place], [address], 4 11:17:38 MAMMO, screening, bilateral 2022 023 [email or web address] [facility], [address], [place], [address], 3 10:34:14 Medication Orders None recorded. Patient TargetsNo targets recorded. Patient InstructionsNo instructions recorded. Reason for Referral None Reported. 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 FINAL DIAGN OSIS: Negat humza for Intra epith elial Lesio n or Mauro nielsen (NIL) . Elect yanira zuñiga mathew d by DeLuc a, Eli, CT on 2021 at 6:23 PM ----- ----- ----- ----- ----- ----- ----- ----- ----- ----- ----- ----- ----- ----- ----- ----- ----- ---- HPV RESUL TS: HPV mRNA E6/E7 : No HPV mRNA Detec vinny NOTE: This high risk HPV mRNA assay detec ts fourt een high- risk HPV types (16, 18, 31, 33, 35, 39, 45, 51, 52, 56, 58, 59, 66, 68) witho ut diffe renti ation . COMME NT: Note: This speci men was revie wed by a Cytot echno logis t and/o r Patho logis t (as indic ated in this repor t) after evalu ation using the Thinp rep Imagi ng Syste m. CLINI CATRACHITO INFOR MATIO N: Menst rual Statu s: LMP (if appli cable ): Clini catrachito Histo ry/Pr eviou s Pap: Type of Neopl houston (if appli cable ): Signi fican t Clini catrachito Findi ngs: Other Histo ry: Hormo avnessa (if appli cable ): PAP EDUCA ALICIA L NOTE: The Pap Test is a scree abhilash test with an inher ent false negat humza rate. Liqui d-bas ed sampl ing may decre ase, but will not elimi dion, false negat humza resul ts. A negat humza resul t does not precl ude the prese nce and/o r devel opmen t of disea se, since the prese nce of abnor mal cells in the sampl e depen ds on the locat ion of the lesio n and sampl ing techn ique. Kelechi nued regul ar scree abhilash is the best metho d of cance r preve ntion . If repor vinny cytol ogic findi ng do not corre late with physi catrachito and/o r histo rical findi ngs, furth er inves tigat ion is recom amaya d, as clini ely warra nted. 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 FINAL DIAGN OSIS: Negat humza for Intra epith elial Belkis rojo or Mauro nielsen (NIL) . Elect yanira carmona d by Dinesh Jha , CT on 11/04 at 12:54 PM ----- ----- ----- ----- ----- ----- ----- ----- ----- ----- ----- ----- ----- ----- ----- ----- ----- ---- HPV RESUL TS: HPV mRNA E6/E7 : No HPV mRNA Detec vinny NOTE: This high risk HPV mRNA assay detec ts fourt een high- risk HPV types (16, 18, 31, 33, 35, 39, 45, 51, 52, 56, 58, 59, 66, 68) witho ut diffe renti ation . COMME NT: This speci men was revie wed by a Cytot echno logis t and/o r Patho logis t (as indic ated in this repor t) after evalu ation using the Thinp rep Imagi ng Syste m. CLINI CATRACHITO INFOR MATIO N: Menst rual Statu s: LMP (if appli cable ): Clini catrachito Histo ry/Pr eviou s Pap: Type of Neopl houston (if appli cable ): Signi fican t Clini catrachito Findi ngs: Other Histo ry: Hormo vanessa (if appli cable ): PAP EDUCA ALICIA L NOTE: The Pap Test is a scree abhilash test with an inher ent false negat humza rate. Liqui d-bas ed sampl ing may decre ase, but will not elimi dion, false negat humza resul ts. A negat humza resul t does not precl ude the prese nce and/o r devel opmen t of disea se, since the prese nce of abnor mal cells in the sampl e depen ds on the locat ion of the lesio n and sampl ing techn ique. Kelechi nued regul ar scree abhilash is the best metho d of cance r preve ntion . If repor vinny cytol ogic findi ng do not corre late with physi catrachito and/o r histo rical findi ngs, furth er inves tigat ion is recom amaya d, as clini ely olson nted. Not Available [facility] (Lab) [address] [facility], [place], [address], 11/04/2023 13:56:54 11/13/20 24 11/13/2024 IMAGE GUIDE D PAP AND HPV REGAR DLESS image guided Pap, HPV regardless of Pap result SEE RESULT S BELOW CASE REPOR T: Cytol ogy Gynec ologi catrachito Repor t Case: [id number] Autho wes g Provi barry: Laney Butler, PREASSEMBLER AND INSPECTOR Colle cted: 11/13 1247 Order ing Locat ion: [place] [facility] Recei andry: 11/16 0707 First Scree n: Jose Miguel garcía, Ramesh ed, CT Rescr een: Caryl Knutson, CT Speci men: Matias hung Pap - Image d, Cervi x STATE MENT OF ADEQU ACY: Satis facto ry for evalu ation Trans forma tion zone compo nent absen t The absen ce of an endoc ervic al compo nent was confi rmed by an addit ional screcristela ner. ----- ----- ----- ----- ----- ----- ----- ----- ----- ----- ----- ----- ----- ----- ----- ----- ----- ---- FINAL DIAGN OSIS: Negat humza for Intra epith elial Belkis rojo or Mauro nielsen ([facility]) . 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 COMME NT: This speci men was revie wed by a Cytot echno logis t and/o r Patho logis t (as indic ated in this repor t) after evalu ation using the Thinp rep Imagi ng Syste m. CLINI CATRACHITO INFOR MATIO N: Menst rual Statu s: LMP (if appli cable ): 10/30 Clini catrachito Histo ry/Pr eviou s Pap: Type of Neopl houston (if appli cable ): Signi fican t Clini catrachito Findi ngs: Other Histo ry: Hormo vanessa (if appli cable ): PAP EDUCA ALICIA L NOTE: The Pap Test is a scree abhilash test with an inher ent false negat humza rate. Liqui d-bas ed sampl ing may decre ase, but will not elimi dion, false negat humza resul ts. A negat humza resul t does not precl ude the prese nce and/o r devel opmen t of disea se, since the prese nce of abnor mal cells in the sampl e depen ds on the locat ion of the lesio n and sampl ing techn ique. Kelechi nued regul ar scree abhilash is the best metho d of cance r preve ntion . If repor vinny cytol ogic findi ng do not corre late with physi catrachito and/o r histo rical findi ngs, furth er inves tigat ion is recom amaya d, as clini ely warra nted. Not Available [facility] (Lab) [address], [place], [address], 11/26/2024 10:01:37 02/27/20 24 02/27/2024 MAMMO , scree abhilash, bilat eral No observ ation record ed. [email or web address] [address] [address], [place], [address], 02/28/2024 11:11:25 03/10/20 24 03/10/2024 US, pelvi s No observ ation record ed. [email or web address] [facility] [address] [facility] [address], [place], [address], 03/10/2024 18:13:01 03/10/20 24 03/10/2024 US, trans shweta al No observ ation record ed. [email or web address] [facility] [address], [place], [address], 03/10/2024 18:12:52 03/10/20 24 03/10/2024 US, pelvi s No observ ation record ed. DESTINEY [address], [place], [address], 03/27/2024 11:56:04 05/10/20 25 05/10/2025 MAMMO , scree abhilash, digit al, bilat eral No observ ation record ed. DESTINEY [facility] [address], [place], [address], 05/13/2025 12:41:38 Result Notes None recorded. Problems Name Problem SNOMED Code Status Onset Date Resolution Date Notes Provider Name and Address Organization Details Recorded Time Screenin g for malignan t neoplasm of cervix Completed 201108/17/2021 Screenin g for malignan t neoplasm s of the cervix;R ecorded Elsewher e: No Locat ion: [facility] S ource: EHR [place] neto: N Practi ce ID: 0001 Kieran lable Time: 01:30:00 PM [facility] 13:31:33 Amenorrh ea [id number] Completed 201108/17/2021 Absence of menstrua tion;Rec orded Elsewher e: No Locat ion: [facility] S ource: EHR [place] neto: N Practi ce ID: 0001 Kieran lable Time: 01:30:00 PM Charity Salcido [facility] 13:29:53 Pregnanc y test positive [id number] Completed 201108/17/2021 Pregnanc y examinat ion or test, positive result;R ecorded Elsewher e: No Locat ion: [facility] S ource: EHR [place] neto: N Practi ce ID: 0001 Kieran lable Time: 01:30:00 PM Charity Salcido [facility] 13:31:00 Primigra iveth [id number] Completed 201108/17/2021 Supervis ion of normal first pregnanc y;Practi ce ID: 0001 Charity smith, [facility] 13:31:02 Multigra iveth of advanced maternal age [id number] Completed 201108/17/2021 Other advanced maternal age, antepart um conditio n or complica tion;Rec orded Elsewher e: No [facility]at [facility] S ource: EHR [place] neto: N Fabian ce ID: 0001 Kieran lable Time: 01:30:00 PM Charity Salcido [facility] 13:30:51 anatomy study Completed 201108/17/2021 [facility] ANATMC SURVEY;R ecorded Elsewher e: No Locat ion: [facility] S ource: EHR [place] neto: N Fabian ce ID: 0001 Kieran lable Time: 01:30:[address] [facility], [facility] 13:30:30 Carpal tunnel syndrome [id number] Completed 201108/17/2021 Carpal Tunnel Syndrome ;Recorde d Elsewher e: No Locat ion: [facility] S ource: EHR [place] neto: N Fabian ce ID: 0001 Kieran lable Time: 10:45:[address] [facility] 13:30:00 Carbuncl e of skin and/or subcutan eous tissue [id number] Completed 201108/17/2021 Carbuncl e and furuncle of other specifie d sites;Re corded Elsewher e: No Locat ion: [facility] S ource: EHR [place] neto: N Fabian ce ID: 0001 Kieran lable Time: 09:45:[address] [facility], [facility] 13:29:58 Excessiv e growth affectin g manageme nt of mother [id number] Completed 201108/17/2021 Excessiv e growth, affectin g manageme nt of mother, antepart um;Recor ded Elsewher e: No [facility]at ion: [facility] S ource: EHR [place] neto: N Practi ce ID: 0001 Kieran lable Time: 09:45:00 AM Charity smith, [facility] 13:30:25 distress affectin g manageme nt of mother [id number] Completed 201108/17/2021 distress , affectin g manageme nt of mother, antepart um;Pract ice ID: [address] [facility], [facility] 13:30:32 Single live from singleto n pregnanc y [id number] Completed 201108/17/2021 Mother with single liveborn ;Practic e ID: 0001 Charity Salcido [facility] 13:31:37 Urinary tract infectio us disease [id number] Completed 201108/17/2021 Urinary Tract Infectio n;Record ed Elsewher e: No Locat ion: [facility] S ource: EHR [place] neto: N Practi ce ID: 0001 Kieran lable Time: 11:15:00 AM Charity Salcido [facility] 13:31:48 Leukocyt osis [id number] Completed 201108/17/2021 LEUKOCYT OSIS NOS;Pancho rded Elsewher e: No Locat ion: [facility] S ource: EHR [place] neto: N Practi ce ID: 0001 Kieran lable Time: 11:15:00 AM Charity Salcido [facility] 13:30:38 Acute upper respirat ory infectio n [id number] Completed 201108/17/2021 Acute upper respirat ory infectio ns of unspecif ied site;Pra ctice ID: 0001 Charity Salcido [facility] 13:29:48 Deliveri es by [id number] Completed 201108/17/2021 delivery , without mention of indicati on, unspecif ied as to episode of care;Pra ctice ID: 0001 Charity Salcido [facility] 13:30:23 Fever [id number] Completed 201108/17/2021 FEVER NOS;Prac sudhir ID: [address] [facility], [facility] 13:30:34 Post-tra umatic wound infectio n [id number] Completed 201208/17/2021 Posttrau matic wound infectio n not elsewher e classifi ed;Recor ded Elsewher e: No Locat ion: Rajinder archibald [facility] S ource: EHR [place] neto: Y Practi ce ID: 0001 Kieran lable Time: 09:30:00 AM Charity Salcido [facility] 13:30:57 Postpart um care Completed 201208/17/2021 Routine postpart um follow-u p;Record ed Elsewher e: No Locat ion: [facility] S ource: EHR [place] neto: N Practi ce ID: 0001 Kieran lable Time: 09:00:00 AM Charity Salcido [facility] 13:30:58 Routine antenata l care Completed 201208/17/2021 Supervis ion of other normal pregnanc y;Record ed Elsewher e: No Locat ion: [facility] S ource: EHR [place] neto: N Practi ce ID: 0001 Kieran lable Time: 08:30:00 AM Charity Salcido [facility] 13:31:04 Threaten ed miscarri age [id number] Completed 201208/17/2021 Threaten ed , antepart um;Recor ded Elsewher e: No Locat ion: [facility] S ource: EHR [place] neto: Isaias Peralta ce ID: 0001 Kieran lable Time: 02:30:[address] [facility] 13:31:46 Missed miscarri age [id number] Completed 201208/17/2021 Missed ;Recorde d Elsewher e: No Locat ion: [facility] S ource: EHR [place] neto: N Tobiasti ce ID: 0001 Kieran lable Time: 11:45:[address] [facility] 13:30:49 Complete Completed 201208/17/2021 Spontane ous , complete , without mention of complica tion;Rec orded Elsewher e: No Locat ion: [facility] S ource: EHR [place] neto: Isaias Peralta ce ID: 0001 Kieran lable Time: 05:00:[address] [facility] 13:30:14 Family planning surveill ance Completed 201308/17/2021 Contrace ptive surveill ance, unspecif ied;Pancho rded Elsewher e: No Locat ion: [facility] S ource: EHR [place] neto: Isaias Peralta ce ID: 0001 Kieran lable Time: 10:00:[address] [facility] 13:30:27 Menopaus al symptom [id number] Completed 201308/17/2021 Menopaus al or female climacte maxim states;R ecorded Elsewher e: No Locat ion: [facility] S ource: EHR [place] neto: N Tobiasti ce ID: 0001 Kieran lable Time: 10:00:[address] [facility] 13:30:47 Malaise and fatigue [id number] Completed 201308/17/2021 Fatigue And Malaise; Practice ID: 0001 Charity smith [facility] 13:30:41 Speciali d medical examinat ion Completed 201308/17/2021 Gynecolo gical Examinat ion;Pancho rded Elsewher e: No Locat ion: [facility] S ource: EHR [place] neto: N Practi ce ID: 0001 Kieran lable Time: 11:00:[address] [facility] 13:31:41 Screenin g for malignan t neoplasm of rectum Completed 201408/17/2021 Screenin g for malignan t neoplasm s of the rectum;R ecorded Elsewher e: No Locat ion: [facility] S ource: EHR [place] neto: N Practi ce ID: 0001 Kieran lable Time: 03:00:[address] [facility] 13:31:35 Adult health examinat ion Completed 201408/17/2021 ROUTINE MEDICAL EXAM;Rec orded Elsewher e: No Locat ion: [facility] S ource: EHR [place] neto: N Tobiasti ce ID: 0001 Kieran lable Time: 03:00:00 PM Charity smith [facility] 13:29:[address] Concept Completed 201508/17/2021 Encntr for general adult medical exam w/o abnormal findings ;Recorde d Elsewher e: No Locat ion: [facility] S ource: EHR [place] neto: N Practi ce ID: 0001 Kieran lable Time: 10:30:[address] [facility] 13:31:38 Abdomina l bloating [id number] Completed 201608/17/2021 Bloating ;Recorde d Elsewher e: No Locat ion: [facility] S ource: EHR [place] neto: N Tobiasti ce ID: 0001 Kieran lable Time: 09:30:[address] [facility] 13:29:46 Pelvic and perineal pain [id number] Completed 201608/17/2021 Pelvic pain;Rec orded Elsewher e: No Locat ion: Rajinder archibald [facility] Pract[facility] ID: 0001 Kieran lable Time: 01:45:00 PM Charity Salcido [facility] 13:30:53 Finding of menstrua l bleeding Completed 201608/17/2021 Menorrha tamy;Pancho rded Elsewher e: No Locat ion: [facility] S ource: [facility] neot: N Tobiasti ce ID: 0001 Kieran lable Time: 01:45:00 PM Charity Salcido [facility] 13:30:36 Syphilis test finding [id number] Completed 201708/17/2021 Encounte r for STD screenin g;Record ed Elsewher e: No Locat ion: [facility] S ource: [facility] neto: N Tobiasti ce ID: 0001 Kieran lable Time: 01:00:[address] [facility] 13:31:45 Atypical squamous cells of undeterm ined signific ance on cervical Papanico laou smear [id number] Completed 201708/17/2021 Atyp squam cell of undet signfc cyto smr crvx (ASC-US) ;Recorde d Elsewher e: No Locat ion: [facility] S ource: [facility] neto: N Tobiasti ce ID: 0001 Kieran lable Time: 01:00:[address] [facility] 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 13:31:40 Migraine [id number] Active 2020 Farzaneh Rapp MD [address], [place], [address], [facility] 13:28:26 Problem Notes None recorded. Procedures Surgical History Date Name Laterality Status Provider Name and Address Organization Details Recorded Time 02/27/20 24 Date of [facility]/28/2024 10:56:41 10/30/20 23 Date of Last Pap Smear completed Opal Thomas [facility] 02/28/2024 10:57:03 11/18/19 22 Date of Last Colonoscopy completed Opal Abner [facility] 10/30/2023 11:27:20 10/17/20 21 Endometrial Ablation with Hysteroscopy completed Farzaneh Rapp MD [address], [place], [address], [facility] 10/17/2021 10:26:43 09/20/20 21 Endometrial Biopsy completed Farzaneh Rapp MD [address], [place], [address], [facility] 09/20/2021 14:05:28 09/18/20 21 Endometrial Ablation completed [facility] [address], [place], [address], [facility] 09/17/2022 12:56:48 11/18/19 12 section completed Charity Salcido [facility] 08/17/2021 13:37:14 Orthopedic Surgery completed Charity Salcido [facility] 08/17/2021 13:57:10 Dilation and Curettage completed Yasmin [facility] 09/12/2020 11:42:[address] [facility] 09/12/2020 11:42:07 Knee arthroscopy/surg amarilis completed Eunice Alanis [facility] 11/13/2024 11:16:34 Imaging Results None recorded. Procedure Notes None recorded. Medical Equipment None Reported. Allergies Allergen ID Allergen Name Allergen Category Reaction Reaction Severity Criticality Documentation Date Start Date Code Code System Note Provider Name and Address Organization Details Recorded Time 54745 acetamino phen / hydrocodo ne medicatio n headache Not available Not available 08/17/2021 45421 2 RxNorm Charity Salcido [facility] 1 13:57:01 21726 hydrocodo ne Not available headache severe Not available 09/17/2022 5489 RxNorm Charity Salcido [facility] 2 12:40:26 2502 doxycycli ne Not available Not available Not available Not available 09/12/2020 3640 RxNorm Charity Salcido [facility] 2 12:40:26 2503 gatifloxa yanelis medicatio n Not available Not available Not available 09/12/2020 74173 6 RxNorm Charity Salcido [facility] 2 12:40:26 Medications Name Sig Start Date Stop Date Status Note LastModified by Organization Details LastModified Time promethaz ine-DM 6.25 mg-15 mg/5 mL oral syrup TAKE 5 ML BY MOUTH EVERY 6 HOURS NEEDED FOR COUGH. MAX 30 ML / 24 HOUR 09/17 completed Not Available Not Available Not Available venlafaxi ne ER 37.5 mg capsule,e xtended release 24 hr TAKE 1 CAPSULE BY MOUTH EVERY DAY 10/30 completed Not Available Not Available Not Available prednison e 10 mg tablet 11/13 completed Not Available Not Available Not Available ketoconaz ole 2 % shampoo SHAMPOO NECK/ FACE DAILY 10/30 completed Not Available Not Available Not Available trazodone 50 mg tablet TAKE 2 TABLETS BY MOUTH EVERY DAY AT BEDTIME 10/30 completed Not Available Not Available Not Available ibuprofen 800 mg tablet TAKE 1 TABLET BY MOUTH THREE TIMES DAILY active Not Available Not Available No t Available citalopra m 10 mg/5 mL oral solution take 10 millilit er by oral route every day 07/29 completed Prescrib ed Elsewher e: Yes Loca tion: [facility] odify By: sveta Mae nter DateTime : 05/25/20 16 10:30:00 AM Not Available Not Available Not Available ondansetr on HCl 8 mg tablet TAKE 1 TABLET BY MOUTH 2 HOURS BEFORE THE PROCEDUR E 09/17 completed Not Available Not Available Not Available Paxil 20 mg tablet take 1 tablet by oral route every day 03/09 completed Prescrib ed Elsewher e: No [facility] By: sveta Mae nter DateTime : 07/29/20 19 08:30:00 AM Not Available Not Available Not Available prednison e 20 mg tablet TAKE 2 TABLETS BY MOUTH EVERY DAY FOR 10 DAYS 09/17 completed Not Available Not Available Not Available Zomig 2.5 mg tablet take 1 tablet by oral route once; if headache returns, the dose may be repeated after 2 hours, not to exceed 10 mg within 24 hours 11/25 completed Prescrib ed Elsewher e: Yes Loca tion: [facility] odify By: tgingric h Encoun ter DateTime : 04/04/20 12 08:24:03 AM Not Available Not Available Not Available topiramat e 25 mg tablet TK 2 TS PO BID 03/09 completed Not Available Not Available Not Available zolmitrip callejas 5 mg tablet 09/17 completed Not Available Not Available Not Available cefadroxi l 500 mg capsule take 1 capsule (500MG) by oral route every 12 hours for 10 days 09/28 completed Prescrib ed Elsewher e: No Locat ion: Rajinder archibald [facility] odify By: tylobo becerra DateTime : 09/19/20 12 09:45:00 AM Not Available Not Available Not Available alprazola m 0.5 mg tablet TAKE 1 TABLET BY MOUTH DAILY NEEDED FOR ANXIETY active Not Available Not Available No t Available propranol ol 40 mg tablet TK 2 TS PO BID 03/09 completed Not Available Not Available Not Available citalopra m 20 mg tablet TK 1 T PO QD 09/17 completed Not Available Not Available Not Available Metrogel Vaginal 0.75 % (37.5 mg/5 gram) insert 1 applicat orful by vaginal route every day at bedtime 07/15 completed Prescrib ed Elsewher e: No Locat ion: [facility] odify By: amkjoan leonardunttaqueria DateTime : 05/31/20 16 10:59:24 AM Not Available Not Available Not Available oxycodone -acetamin ophen 10 mg-325 mg tablet TAKE 1 TABLET BY MOUTH DIRECTED 09/17 completed Not Available Not Available Not Available meclizine 25 mg tablet TAKE 1 TABLET BY MOUTH EVERY 6 TO 8 HOURS FOR 10 DAYS NEEDED 02/27 completed Not Available Not Available Not Available cephalexi n 500 mg capsule TAKE 1 CAPSULE BY MOUTH TWICE DAILY FOR 10 DAYS 02/27 completed Not Available Not Available Not Available metformin 1,000 mg tablet take 1 tablet by oral route 2 times every day with morning and evening meals 11/25 completed Prescrib ed Elsewher e: Yes L[facility] odify By: tgingric h Encoun ter DateTime : 04/04/20 12 08:24:03 AM Not Available Not Available Not Available propranol ol ER 80 mg capsule,2 4 hr,extend ed release 10/30 completed Not Available Not Available Not Available Tylenol 325 mg tablet take 1 tablet by oral route every 4 hours as needed 03/09 completed Prescrib ed Elsewher e: Yes Loca tion: [facility] odify By: jlpmichi myers DateTime : 04/04/20 12 01:30:00 PM Not Available Not Available Not Available folic acid 1 mg tablet take 1 tablet by oral route every day 04/07 completed Prescrib ed Elsewher e: Yes Loca tion: [facility] arch[facility] odify By: cristal wilson DateTime : 04/04/20 12 01:30:00 PM Not Available Not Available Not Available monteluka st 10 mg tablet TAKE 1 TABLET BY MOUTH DAILY IN THE EVENING active Not Available Not Available No t Available zolpidem 5 mg tablet TK 1 T PO QD HS 03/09 completed Not Available Not Available Not Available hydroxych loroquine 200 mg tablet TAKE 1 TABLET BY MOUTH EVERY DAY 10/30 completed Not Available Not Available Not Available cefuroxim e axetil 500 mg tablet TAKE 1 TABLET BY MOUTH EVERY 12 HOURS FOR 10 DAYS 11/13 completed Not Available Not Available Not Available methylpre dnisolone 4 mg tablets in a dose pack FOLLOW PACKAGE DIRECTIO NS 09/17 completed Not Available Not Available Not Available Vitamin D2 1,250 mcg (50,000 unit) capsule take 1 capsule (14521XP ITS) by oral route every week 11/25 completed Prescrib ed Elsewher e: No Locat ion: Rajinder archibald [facility] odify By: michael wilson DateTime : 05/09/20 12 11:37:08 AM Not Available Not Available Not Available norethind zachary (contrace ptive) 0.35 mg tablet take 1 tablet by oral route every day 05/25 completed Prescrib ed Elsewher e: No Locat ion: [facility] odify By: maryanne becerra DateTime : 06/20/20 15 09:39:51 AM Not Available Not Available Not Available naratript an 2.5 mg tablet 09/17 completed Not Available Not Available Not Available Clomid 50 mg tablet take 1 tablet by oral route every day 11/25 completed Prescrib ed Elsewher e: Yes Loca tion: [facility] odify By: michael wilson DateTime : 04/04/20 12 08:24:03 AM Not Available Not Available Not Available amoxicill in 875 mg-potass ium clavulana te 125 mg tablet TAKE 1 TABLET BY MOUTH EVERY 12 HOURS FOR 10 DAYS 10/30 completed Not Available Not Available Not Available clindamyc in phosphate 1 % topical solution APPLY TO FACE TWICE DAILY NEEDED active Not Available Not Available No t Available Vitamin 27 mg iron-0.8 mg tablet take 1 tablet by oral route every day 04/29 completed Prescrib ed Elsewher e: Yes Loca [facility]ion: [facility] odify By: cristal wilson DateTime : 04/07/20 13 08:30:00 AM Not Available Not Available Not Available escitalop joycelyn 10 mg tablet TAKE 1 TABLET BY MOUTH DAILY active Not Available Not Available No t Available monteluka st 4 mg oral granules in packet 03/09 completed Prescrib ed Elsewher e: Yes [facility]oca [facility] odify By: maryanne becerra DateTime : 05/25/20 16 10:30:00 AM Not Available Not Available Not Available azelaic acid 15 % topical gel APPLY TO FACE TWICE DAILY 02/27 completed Not Available Not Available Not Available Prempro 0.45 mg-1.5 mg tablet TAKE 1 TABLET BY MOUTH DAILY 11/13 completed Not Available Not Available Not Available topiramat e 50 mg tablet 03/09 completed Not Available Not Available Not Available Ortho-Cyc guille (28) 0.25 mg-35 mcg tablet take 1 tablet by oral route every day 04/29 completed Prescrib ed Elsewher e: No [facility]at [facility] odify By: cristal wilson DateTime : 01/12/20 14 10:00:00 AM Not Available Not Available Not Available citalopra m 03/09 completed Not Available Not Available Not Available Zomig 09/17 completed Not Available Not Available Not Available monteluka st 03/09 completed Not Available Not Available Not Available Paxil 09/12 completed Not Available Not Available Not Available Tylenol 09/12 completed Not Available Not Available Not Available Zyrtec 09/17 completed Not Available Not Available Not Available topiramat e 03/09 completed Not Available Not Available Not Available CitraNata l Assure 35 mg-1 mg-50 mg-300 mg oral pack take 1 Tablet by Oral route every day for 90 days 12/02 completed Prescrib ed Elsewher e: No Locat ion: Rajinder archibald [facility] odify By: anshu leonardunter DateTime : 09/04/20 13 08:30:00 AM Not Available Not Available Not Available cetirizin e 10 mg capsule Take 1 capsule every day by oral route. 10/30 completed Not Available Not Available Not Available Probiotic 10 billion cell capsule 03/09 completed Prescrib ed Elsewher e: Yes Loca tion: [facility] odify By: cristal wilson DateTime : 04/29/20 14 11:00:00 AM Not Available Not Available Not Available Probiotic 03/09 completed Not Available Not Available Not Available Lo Loestrin Fe 1 mg-10 mcg (24)/10 mcg (2) tablet take 1 tablet by oral route every day 04/29 completed Prescrib ed Elsewher e: No Locat ion: Rajinder archibald [facility] odify By: cristal wilson DateTime : 09/21/20 13 05:00:00 PM Not Available Not Available Not Available glucosami ne-chondr oitin 167 mg-133 mg capsule 12/11 completed Prescrib ed Elsewher e: Yes Loca tion: [facility] odify By: kaley becerra DateTime : 04/29/20 14 11:00:00 AM Not Available Not Available Not Available Multi Vitamin 03/09 completed Not Available Not Available Not Available Move Free Joint Health 03/09 completed Not Available Not Available Not Available Emgality 120 mg/mL subcutane ous syringe Inject by subcutan eous route. 11/13 completed Not Available Not Available Not Available semagluti de (weight loss) 2.4 mg/0.75 mL subcutane ous pen injector Inject by subcutan eous route. active Not Available Not Available No t Available Qulipta 60 mg tablet TAKE 1 TABLET BY MOUTH DAILY active Not Available Not Available No t Available Paxlovid 300 mg (150 mg x 2)-100 mg tablets in a dose pack TAKE TWO 150MG TABLETS AND ONE 100MG TABLET BY MOUTH TWICE DAILY FOR 5 DAYS 09/17 completed Not Available Not Available Not Available Vitals Date Recorded Body height Body mass index (BMI) Body weight Systolic And Diastolic Provider Name and Address Organization Details Last Updated DateTime 02/28/2024 153.67 cm 36.1 kg/m2 25217.37 g 124/80 mm[Hg] Opal [facility] 02/28/2024 10:53:49 Date Recorded Body height Body mass index (BMI) Body weight Systolic And Diastolic Provider Name and Address Organization Details Last Updated DateTime 09/17/2022 153.67 cm 40 kg/m2 62590.21 g 124/80 mm[Hg] Charity Salcido [facility] 09/17/2022 12:40:18 Date Recorded Body height Body mass index (BMI) Body weight Systolic And Diastolic Provider Name and Address Organization Details Last Updated DateTime 10/30/2023 153.67 cm 37.3 kg/m2 62097.92 g 124/71 mm[Hg] Opal [facility] 10/30/2023 11:22:36 Date Recorded Body height Body mass index (BMI) Body weight Systolic And Diastolic Provider Name and Address Organization Details Last Updated DateTime 11/13/2024 153.67 cm 38.9 kg/m2 93674.81 g 115/81 mm[Hg] Eunice Alanis [facility] 11/13/2024 11:10:38 Social History Question Answer Notes LastModified by Organizat ion Details LastModified Time Tobacco Smoking Status Never Smoker [facility]ity [facility] 09/17/2022 12:40:46 Do You Have An Advance Directive? No Information n ot available 08/17/2021 Are You Blind Or Do You Have Difficulty Seeing? No Information n ot available 08/17/2021 What Is Your Level Of Caffeine Consumption? Occasional Information not available 08/17/2021 How Much Tobacco Do You Chew? None Information not available 08/17/2021 In The 14 Days Before Symptom Onset, Have You Had Close Contact With A Laboratory-confirm ed COVID-19 While That Case Was Ill? No Information n ot available 08/17/2021 In The 14 Days Before Symptom Onset, Have You Had Close Contact With A Person Who Is Under Investigation For COVID-19 While That Person Was Ill? No Information not available 08/17/2021 Have You Been To An Area Known To Be High Risk For COVID-19? No Information not available 08/17/2021 Are You Deaf Or Do You Have Serious Difficulty Hearing? No Information not available 08/17/2021 What Type Of Diet Are You Following? CARBOHYDRATE Information n ot available 09/17/2022 What Is The Highest Grade Or Level Of School You Have Completed Or The Highest Degree You Have Received? [id number] Information not available 08/17/2021 Are There Any Guns Present In Your Home? Yes Information not available 08/17/2021 Do You Use Protection During Sex? No Information not available 09/17/2022 Do You Use Your Seat Belt Or Car Seat Routinely? Yes Information not available 08/17/2021 Do You Have Smoke And Carbon Monoxide Detectors In Your Home? Yes Information not available 08/17/2021 How Much Tobacco Do You Smoke? No Information not available 08/17/2021 Do You Use Sunscreen Routinely? Yes Information not available 08/17/2021 Have You Used IV Drugs? No Information not available 08/17/2021 Do You Have Difficulty Walking Or Climbing Stairs? No Information not available 09/17/2022 Sex: Female Functional Status Question Answer Note LastModified by Organizat ion Details LastModified Time Do you use any illicit or recreational drugs? No Information not available 08/17/2021 What is your level of alcohol consumption? None Information not available 08/17/2021 Are you able to walk? YESWOREST Information not available 08/17/2021 Are you able to care for yourself? 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 No Information not available 09/17/2022 What is your exercise level? Moderate Information not available 08/17/2021 Mental Status Question Answer Note LastModified by Organization D etails LastModified Time Do you feel stressed (tense, restless, nervous, or anxious, or unable to sleep at night)? [id number] Information not available 08/17/2021 Family History Relationship Description Onset Age of this Age Resolved Age Notes LastModified by Organization Details LastModified Time Maternal Grandmother Carcinoma in situ of colon [email or web address] Not available 2023 10:57:01 Maternal Grandmother Heart disease [email or web address] Not available 2019 11:41:38 Maternal Grandfather Heart disease [email or web address] Not available 2019 11:41:38 Paternal Grandmother Diabetes mellitus [email or web address] Not available 2019 11:41:46 Mother Hypertensive disorder [email or web address] Not available 2019 11:41:53 Medical History Condition Response Polycystic ovary syndrome Y Infertility Y Gynecological History Statement/Question Response Abnormal Pap Y Date of Last Mammogram 02/27/2024 Flow Light Date of LMP 10/30/2024 On BCP's at Conception? N Was last menstrual period normal Y STIs/STDs N HPV Vaccine N Duration of Flow (days) 4 9 Current Control Method Partner Vas ectomy Age at First Child 37 Are cycles usually normal Y Date of Last Colonoscopy 11/18/2021 Frequency of Cycle (Q days) 30 Sexually Active? Y Menses Monthly Y Age of first menstrual cycle 9 Date of Last Pap Smear 10/30/2023 Sexual Problems? N LMP Definite Obstetrics History GPAL:G 2 P 0 0 1 1 Type Value Spontaneous 1 Living 1 Total 2 Past Encounters Encounter ID Performer Location Encounter Start Date Encounter Closed Date Diagnosis/Indication Diagnosis SNOMED-CT Code Diagnosis ICD10 Code Diagnosis Note [id number] Gini Menon [facility] [address] [address] 09/12/2020 12:18:41 09/13/2020 13:28:55 Gynecologic examination 72142965 Z01.419 Suggested Calcium with Vitamin D 1200-1500m g daily. Patient advised to get an annual flu shot in the fall and she could obtain at [facility] or [facility] clinic. Also to obtain TDap vaccinatio n if you have not had one in the last 10 years. Recommend yearly mammograms . Encouraged monthly self breast exams. Encourage safe sexual practices, to use condoms and limit partners if not already in a monogamous relationsh ip. Engage in daily exercise of low impact aerobic exercise 45-60 minutes 4-5 times weekly. Avoid tobacco and illicit drugs as well as using moderation with alcohol intake less than 1-2 8 oz beverages daily. This lifestyle behavior pattern will lead to less health conditions and longer life span. If BMI greater than 25 weight watchers or dietary consult advised. All questions have been answered. Patient appears to understand informatio n, but if you have any questions please call or respond to this email. Pap/hpv updated Monogamous x 13yrs Declined need std screening Vasectomy Secondary dysmenorrhea 67008475 N94.5 Having some dysmenorrh ea with periods but not open to hormonal therapies at this time as she just got her migraines under control & she is hesitant to change anything else right now. We did talk about BC/HRT options moving forward if needed; possibly progestero ne only vs E/P combo. She is already on low dose SSRI for her migraines. She would like to monitor at this time & keep menstrual diary. Will contact us if anything changes. [id number] Gini Menon , [facility] [address] [address] 03/09/2021 11:37:02 03/10/2021 14:35:03 Mass of left breast [id number] N63.20 Exam warrants further evaluation . Imaging ordered. Will await results to determine next steps in plan of care. Time spent in visit is a total of 15 mins with at least 50% of visit consisting of counseling and review of plan of care. Additional precaution jose alejandro measures were taken to minimize potential exposure to the Covid-19 virus during this patient s visit, including available hand sanitarian inspector upon arrive, temperatur e check and being asked a series of screening questions. All staff wore face coverings during this encounter, as well as provided additional cleaning and sanitizing of all surfaces, including countertop s, pens, chairs, door handles, light switches, etc, prior to and following the patient s visit. [id number] Gini Menon [facility] [address] [address] 08/17/2021 13:27:37 08/17/2021 15:09:29 Gynecologic examination 93209773 Z01.419 Suggested Calcium with Vitamin D 1200-1500m g daily. Patient advised to get an annual flu shot in the fall and she could obtain at [facility] or [facility]. Also to obtain TDap vaccinatio n if you have not had one in the last 10 years. Recommend yearly mammograms . Encouraged monthly self breast exams. Encourage safe sexual practices, to use condoms and limit partners if not already in a monogamous relationsh ip. Engage in daily exercise of low impact aerobic exercise 45-60 minutes 4-5 times weekly. Avoid tobacco and illicit drugs as well as using moderation with alcohol intake less than 1-2 8 oz beverages daily. This lifestyle behavior pattern will lead to less health conditions and longer life span. If BMI greater than 25 weight watchers or dietary consult advised. All questions have been answered. Patient appears to understand informatio n, but if you have any questions please call or respond to this email. Pap/hpv updated Monogamous x 13yrs Declined need std screening Vasectomy Abnormal u terine bleeding [id number] 9100 N93.9 Having more heavy & clotty periods over the last 6mos (not excessive) Hotflashes , night sweats, irritabili ty.We agreed to labs & updated TVUSWill discuss next steps POC when results return. Screening mammography 24 128601 Z12.31 [id number] Anup De La Rosa MD [facility] [address] [address] 08/21/2021 09:56:33 08/21/2021 11:58:08 Abnormal uterine bleeding [id number] 9100 N93.9 [id number] Farzaneh Rapp MD [facility] [address] [address] 09/20/2021 11:56:31 09/20/2021 14:44:07 test negative 092308920 Z32.02 Menorrhagia 331563601 N9 2.0 [id number] Farzaneh Rapp MD [facility] [address],[place] [address] 09/27/2021 10:08:41 09/27/2021 13:43:29 Menorrhagia 711708991 N92.0 Menopausal flushing 1984 17367 N95.1 Preoperative state 27642 002 Z78.9 [id number] Farzaneh Rapp MD [facility] [address],[place] [address] 10/17/2021 09:44:02 10/17/2021 10:56:02 test negative 011868806 Z32.02 Menorrhagia 465305116 N9 2.0 [id number] Farzaneh Rapp MD [facility] [address],[place] [address] 10/25/2021 12:04:50 10/25/2021 12:46:19 Postoperative visit 665071655 Z09 Menorrhagia 433968845 N9 2.0 Perimenopa usal disorder 196150354 N95.9 [id number] Farzaneh Rapp MD [facility] [address],[place] [address] 12/27/2021 12:48:03 12/27/2021 13:19:18 Menorrhagia 968291363 N92.0 Menopausal symptom 54080 002 N95.1 [id number] Gini Menon [facility] [address],[place] [address] 09/17/2022 12:28:19 09/17/2022 14:40:17 Gynecologic examination 74289427 Z01.419 Z11.51 Suggested Calcium with Vitamin D 1200-1500m g daily. Patient advised to get an annual flu shot in the fall and she could obtain at [facility] or [facility] take care clinic. Also to obtain TDap vaccinatio n if you have not had one in the last 10 years. Recommend yearly mammograms . Encouraged monthly self breast exams. Encourage safe sexual practices, to use condoms and limit partners if not already in a monogamous relationsh ip. Engage in daily exercise of low impact aerobic exercise 45-60 minutes 4-5 times weekly. Avoid tobacco and illicit drugs as well as using moderation with alcohol intake less than 1-2 8 oz beverages daily. This lifestyle behavior pattern will lead to less health conditions and longer life span. If BMI greater than 25 weight watchers or dietary consult advised. All questions have been answered. Patient appears to understand informatio n, but if you have any questions please call or respond to this email. Pap/hpv sent STD Screen declined Genetic Screen discussed Colon Screen PCP Dexa Screen na Routine Labs PCPMammo ordered [id number] Gini Menon [facility] [address] [address] 10/30/2023 11:16:47 10/30/2023 11:47:23 Gynecologic examination 26009989 Z01.419 Z11.51 Suggested Calcium with Vitamin D 1200-1500m g daily. Patient advised to get an annual flu shot in the fall and she could obtain at [facility] or [facility] clinic. Also to obtain TDap vaccinatio n if you have not had one in the last 10 years. Recommend yearly mammograms . Encouraged monthly self breast exams. Encourage safe sexual practices, to use condoms and limit partners if not already in a monogamous relationsh ip. Engage in daily exercise of low impact aerobic exercise 45-60 minutes 4-5 times weekly. Avoid tobacco and illicit drugs as well as using moderation with alcohol intake less than 1-2 8 oz beverages daily. This lifestyle behavior pattern will lead to less health conditions and longer life span. If BMI greater than 25 weight watchers or dietary consult advised. All questions have been answered. Patient appears to understand informatio n, but if you have any questions please call or respond to this email.Pap/ hpv opts to sendSTD Screen declinedGe netic Screen discussedC olon Screen PCPDexa Screen naRoutine Labs PCPMammo ordered Screening mammography 24 958587 Z12.31 [id number] Gini Menon [facility] [address] [address] 02/28/2024 10:48:25 02/28/2024 11:17:38 Pain in pelvis 97537807 R10.2 This patient is a 48 -year-old female with pelvic pain. We have agreed to complete the evaluation with pelvic ultrasound . The patient will return after the pelvic ultrasound to discuss those findings and to develop a treatment plan. A comprehens humza history and physical exam was performed today. We spent over 25 minutes face-to-fa ce. The patient was given precaution s. She will contact clinic if pelvic pain increases in frequency or intensity. Also notify clinic of any new symptoms associated with pelvic pain. She does not appear to have an acute pelvic infection today, but was asked to contact us Immediatel y with nausea, vomiting, fever, chills. [id number] Anup De La Rosa MD [place] [address],[place] [address] 03/10/2024 13:59:56 03/10/2024 14:43:00 Pain in pelvis [id number] R10.2 [id number] RAFIQ Valencia [facility] [address],[place] [address] 11/13/2024 10:56:15 11/13/2024 12:04:45 Gynecologic examination [id number] Z01.419 WWEBC - partner with vasectomyP ap - done todaySTI screen - declinedMa mmogram - order givenColon cancer screening - [facility] labs - UTD/PCPRTC in 1 yr or sooner if needed Suggested Calcium with Vitamin D daily. Patient advised to get an annual flu shot in the fall and she could obtain at local pharmacy. Also to obtain TDap vaccinatio n if you have not had one in the last 10 years. Recommend yearly mammograms . Encouraged monthly self breast exams. Encourage safe sexual practices, to use condoms and limit partners if not already in a monogamous relationsh ip. Engage in regular exercise. Avoid tobacco and illicit drugs. This lifestyle behavior pattern will lead to less health conditions and longer life span. If BMI greater than 25 dietary consult advised. All questions have been answered. Screening for malignant neoplasm of breast [id number] Z12.39 Health Concerns Section Related Observation LastModified by Organization Detai ls LastModified Time None Recorded Concern Status LastModified by Organization Details LastModified Time None Recorded Advance Directives Directive N: Payers Insurance Date Sequence Insurance Name Policy Number Policy Kaplan Covered Member ID Kaplan Member ID Guarantor Name 10/25/2021 1 [place] [id number] Pedro Varner [id number] February [facility] 10/14/2023 1 [id number] Geo Varner [id number] February [facility] 11/16/2024 1 [facility] [id number] Geo Varner [id number] February [facility] Notes Date Note Type Note Provider Name and Address Organization Details Recorded Time 2 text/html Annual GYNReported bypatient.History:no gynecologic complaints Menstrual cycle:Normal menses Urinary symptoms:No hematuria; No incontinence Vulva:No genital lesion Vagina:Normal vaginal discharge Breast:No breast pain; No breast lump; No nipple discharge Current Contraception:Satisfied with current contraception; Partner had vasectomy Sexual complaints:No sexual complaints; No pain during intercourse; Normal libido Menopausal Symptoms:No menopausal symptoms; Normal vaginal lubrication Psychological symptoms:No depression; No anxiety; No PMDD Preventive measures:Encourage self breast examination; Encourage regular exercise; Encourage no tobacco use; Encourage regular mammograms starting age 40; Followed with yearly pap smears; Needs to schedule mammogram; Needs to schedule colonoscopy RADHA Coleman [address], [place], [address], [facility] 09/17/2022 12:59:08 3 text/html Annual GYNReported bypatient.Menstrual cycle:Normal menses Urinary symptoms:No hematuria; No incontinence Vulva:No genital lesion Vagina:Normal vaginal discharge Breast:No breast pain; No breast lump; No nipple discharge Current Contraception:Satisfied with current contraception; Partner had vasectomy Sexual complaints:No sexual complaints; No pain during intercourse; Normal libido Menopausal Symptoms:No menopausal symptoms; Normal vaginal lubrication Psychological symptoms:No depression; No anxiety; No PMDD Preventive measures:Encourage self breast examination; Encourage regular exercise; Encourage no tobacco use; Encourage regular mammograms starting age 40; Followed with yearly pap smears; Needs to schedule mammogram [place], [address], [facility] 10/30/2023 11:42:31 4 text/html 3-6mos agoLLQdull acheSharp pain at it's worstShortRadiates down left leg sometimesFeels FullMakes more painful mensesAfterwards-sex is really crampyStretching can make it worseFeels okay with walking Advil for arthritis RAFIQ Coleman- [address], [place], [address], [facility] 02/28/2024 11:14:01 4 text/html Annual GYNReported bypatient.Menstrual cycle:Normal menses Urinary symptoms:No hematuria; No incontinence Vulva:No genital lesion Vagina:Normal vaginal discharge Breast:No breast pain; No breast lump; No nipple discharge Current Contraception:Satisfied with current contraception; Partner had vasectomy Sexual complaints:No sexual complaints; No pain during intercourse; Normal libido Menopausal Symptoms:No menopausal symptoms; Normal vaginal lubrication Psychological symptoms:No depression; No anxiety; No PMDD Preventive measures:Encourage self breast examination; Encourage regular exercise; Encourage no tobacco use; Encourage regular mammograms starting age 40Notes:49yo wweBC - partner with vasectomylast pap 10/2023 : nilm, HPV (-) RAFIQ [place] [address], [place], [address], [facility] 11/13/2024 11:52:26 OBGyn Episode Ob Episode Information Episode Created Date Number of Fetuses Patient Bloodtype Patient rh Status Prepregnancy Weight lbs Domestic Partner Domestic Partner Phone Father Name Postdoctoral Research Associate Status 09/12/20 20 1 CLOSED Fetus Data First Name Last Name Admitted to NICU Weight (g) Sex Living Outcome Pediatric Complications Fetus ID Race Codes Race Delivery Type , Spontane ous [id number] Perry Calculation Initial Perry Date Initial Exam Date Initial Exam Provider Initial Ultrasound Date Last Menstrual Period Date Ultra Sound Weeks Gestation 0 Eighteen To Twenty Week Perry Update Ultra Sound Date Fundal Height At Umbil Quickening Date Ultra Sound Latest Weeks Gestation Final Perry Confirmed By Final Perry Confirmed Date Final Perry Date Ultra Sound Latest Days Gestation 0 0 Menstrual History Last Menstrual Date Menses Monthly On Bcp Conception Prior Menses Frequency Hcg Plus Date Menarche Onset Age Delivery Information Delivery Date Delivery Type Labor Anesthesia Weeks Gestation Incision Type Labor Labor Length Hrs Delivered By Post Complications Tubal Sterilization Discharge Date Comments 3 Discharge Information Feeding Method Contraceptive Method Maternal HG B and HCT Levels Ob Episode Information Episode Created Date Number of Fetuses Patient Bloodtype Patient rh Status Prepregnancy Weight lbs Domestic Partner Domestic Partner Phone Father Name Postdoctoral Research Associate Status 09/12/20 20 1 CLOSED Fetus Data First Name Last Name Admitted to NICU Weight (g) Sex Living Outcome Pediatric Complications Fetus ID Race Codes Race Delivery Type [id number] Primary Perry Calculation Initial Perry Date Initial Exam Date Initial Exam Provider Initial Ultrasound Date Last Menstrual Period Date Ultra Sound Weeks Gestation 0 Eighteen To Twenty Week Perry Update Ultra Sound Date Fundal Height At Umbil Quickening Date Ultra Sound Latest Weeks Gestation Final Perry Confirmed By Final Perry Confirmed Date Final Perry Date Ultra Sound Latest Days Gestation 0 0 Menstrual History Last Menstrual Date Menses Monthly On Bcp Conception Prior Menses Frequency Hcg Plus Date Menarche Onset Age Delivery Information Delivery Date Delivery Type Labor Anesthesia Weeks Gestation Incision Type Labor Labor Length Hrs Delivered By Post Complications Tubal Sterilization Discharge Date Comments 2 Discharge Information Feeding Method Contraceptive Method Maternal HG B and HCT Levels
[2025-06-04] MEDS: LACTATED RINGERS 1,000 ML 30 ML IV CONT ×2 (07:20→10:12)
--- NOTE | 2025-06-04 07:21 | WPDHPUPDATE1 ---
History and Physical Update Update Date/Time: 06/04/25 07:21 History and Physical has been reviewed, including an updated exam of the patient. There are NO changes in the patient's condition. Risks, benefits, and alternatives have been discussed and questions answered. Patient agrees to proceed with procedure.
[2025-06-04] MEDS: CELECOXIB 200 MG CAPSULE PO (07:25)
[2025-06-04] MEDS: ACETAMINOPHEN 500 MG TABLET 1000 MG PO (07:25)
[2025-06-04 07:38] LABS: BEDSIDEPREGUCG Negative (Negative)
--- NOTE | 2025-06-04 08:20 | WPDANESEPPF ---
Anes - Initial Pre Proc Eval Procedure: Operation Date: 06/04/25 09:00 Proposed Procedures p Right Knee Arthroscopy - Rei Aguilar MD Date/Time: 06/04/25 08:20 Surgeon: Rei Aguilar MD Pre Op Diagnosis: Right Knee Medial Meniscus Tear Patient Data Age: 50 Gender: F Height: 1.52 m Weight: 89.4 kg Last Vital Signs Temp 37.1 C 06/04/25 07:00 Pulse 95 06/04/25 07:00 Resp 16 06/04/25 07:00 BP 126/78 06/04/25 07:00 Pulse Ox 100 06/04/25 07:00 Allergies Allergy/AdvReac Type Severity Reaction Status Date / Time doxycycline Allergy Intermediate HEADACHE,SEVERE Verified 06/04/25 07:27 N&V hydrocodone Allergy Intermediate Migraine Verified 06/04/25 07:27 BEE STINGS Allergy Intermediate SWELLING Uncoded 05/31/25 09:47 eggs Allergy Intermediate Diarrhea Uncoded 06/02/25 15:10 ENVIRONMENTAL ALLERGIES Allergy Mild Sneezing Uncoded 06/02/25 15:10 SHELLFISH Allergy SEVERE N&V Uncoded 06/02/25 15:10 Home Medications ?Medication ?Instructions ?Recorded ?Confirmed ?Type cetirizine 10 mg tablet (All Day 10 mg PO DAILY #30 tabs 03/24/23 06/02/25 Rx Allergy (cetirizine)) fluticasone propionate 50 1 spray intranasal DAILY #16 grams 03/24/23 06/02/25 Rx mcg/actuation nasal spray,suspension (Allergy Relief (fluticasone)) multivitamin 1 tablet PO DAILY #30 tabs 03/24/23 06/02/25 Rx montelukast 10 mg tablet See Rx Instructions .Route 06/03/24 06/02/25 Rx .COMPLEX #90 tabs escitalopram oxalate 10 mg tablet 10 mg PO DAILY 30 days #30 tabs 02/15/25 06/02/25 Rx atogepant 60 mg tablet (Qulipta) 60 mg PO DAILY #30 tabs 03/02/25 06/02/25 Rx alprazolam 0.5 mg tablet 0.5 mg PO DAILY PRN anxiety #30 04/19/25 06/02/25 Rx tabs chlorhexidine gluconate 4 % 1 applic topical ONCE #237 mL 05/28/25 06/02/25 Rx topical liquid (Hibiclens) Laboratory Tests 06/04/25 07:17 POC Urine HCG, Qual Negative (Negative) Patient hx anesthesia problems: post op nausea/vomiting Family hx anesthesia problems: none Results Review: All pre-operative results and documents have been reviewed as part of the pre-operative evaluation. [facility] Past Medical History Medical History Depression Pyogenic granuloma of skin and subcutaneous tissue Anxiety Migraine Surgical History Surgical History History of arthroscopy of right knee 03/19/2023 History of hysteroscopy cyst removal 2011 History of hysterosalpingogram 2010 History of D&C 2005 History of tonsillectomy Family History Family History Father Thyroid disorder Alcoholism Mother Hypertension Rheumatoid arthritis Grandparent Heart disease Carcinoma of colon Diabetes mellitus Social History Social History Social History: caffeine use Smoking status: Never smoker Alcohol intake: never Substance use: never Substance use type: does not use Lack of Transportation: No Lack of Food: Never True Current Housing: I Have Housing Concerned About Future Housing: No Difficulty Paying Gas/Electric Bills: No Difficulty Paying for Meds: No Currently Unemployed: No Education: Bachelor's Degree Difficulty w/ Childcare or Family Care: No Living arrangements: with family Occupation/Education: other Gender identity (if verbalized by the patient): Female Sexual Orientation (if Verbalized by the Patient): Straight or Heterosexual Spiritual care concerns: No Anes - Eval Final PreProcedure Day of Procedure 06/04/25 08:20 Patient weight: obese Heart: regular rate and rhythm Lungs: clear to auscultation Airway: Mallampati scale class II Neurological: alert and oriented Last oral intake: >/= 8 hours ASA classification: II Emergent: no Anesthetic plan: proceed Anesthesia type and monitoring: general LMA and standard monitoring Results Review: All pre-operative results and documents have been reviewed as part of the pre-operative evaluation. Informed Consent: The patient's anesthetic plan and its attendant risks and benefits were discussed with the patient/family/POA. Questions were solicited and answers provided to the satisfaction of the patient/family/POA.
[2025-06-04] MEDS: SCOPOLAMINE 1 MG PATCH 1 PATCH TRANSDERM (08:46)
[2025-06-04] MEDS: ceFAZolin 2 GM in SODIUM CHLORIDE 0.9% IV 50 ML 100 ML IVPB (08:54)
--- NOTE | 2025-06-04 10:13 | W.PM.PROC2 ---
Procedure Note - Detailed Date of Procedure 06/04/25 Pre-op Diagnosis Right Knee Medial Meniscus Tear Post-op Diagnosis Same Procedure Performed RIGHT KNEE SCOPE Surgeon Rei Aguilar MD Anesthesia General Description of Procedure PATIENT WAS TAKEN TO THE OR. RIGHT LEG WAS PREPPED AND DRAPED STERILE. TROCARS WERE PLACED IN THE USUAL FASHION. CAMERA WAS INTRODUCED. THERE WAS SEVERE CHONDROMALACIA TO THE PATELLA FEMORAL JOINT MOSTLY IN THE TROCHLEA. THERE WAS A LOT OF SYNOVITIS IN ALL COMPARTMENTS. THE MEDIAL COMPARTMENT SHOWED GRADE 3-4 CHONDROMALACIA TO THE MEDIAL FEMORAL CONDYLE. A SHAVER WAS USED TO PREFORM A CHONDROPLASTY. THERE WAS A COMPLEX RADIAL MENISCUS TEAR. THE TEAR WAS RESECTED WITH A BITER AND A SHAVER DOWN TO A SMOOTH BASE. THE ACL WAS INTACT. THE LATERAL MENISCUS WAS NOT TORN. THE TEAR WAS RESECTED. THE LAT COMPARTMENT HAD GRADE 2 CHONDROMALACIA AT THE LATERAL FEMORAL CONDYLE. CHONDROPLASTY WAS PREFORMED. A SYNOVECTOMY WAS PREFORMED WELL. THE PATELLO FEMORAL JOINT UNDERWENT CHONDROPLASTY. THERE WAS GRADE 3-4 CHONDROMALACIA IN MOST OF THE TROCHLEA AND PART OF THE PATELLA. SYNOVECTOMY WAS PREFORMED IN THE SUPERIOR MEDIAL COMPARTMENT. THE WOUNDS WERE APPROXIMATED WITH 4.0 NYLON. STERILE DRESSING WAS APPLIED. PATIENT WAS EXTUBATED. Estimated Blood Loss 5 Complications No immediate complications Condition Stable Disposition PACU
[2025-06-04] MEDS: KETOROLAC 15 MG/ML VIAL (*BKC) IV PUSH (11:59)
[2025-06-04] MEDS: traMADol HCL (*CRX) 50 MG TABLET 100 MG PO (11:59)
== END 2025-06-04 12:46 | disposition home or self-care (01) ==
PROVIDERS: PCP Family Medicine; Visit Provider Orthopaedic Surgery
PROC: (CPT 29870; principal; 2025-06-04 09:00)
DX: S83.231A Complex tear of medial meniscus, current injury, right knee, initial encounter (principal); M22.41 Chondromalacia patellae, right knee; M65.861 Other synovitis and tenosynovitis, right lower leg; X50.0XXA Overexertion from strenuous movement or load, initial encounter; E66.9 Obesity, unspecified; Z68.38 Body mass index [BMI] 38.0-38.9, adult
CPT/HCPCS: 29881; 29876; J0690; A9270; J1100; J1885; J2003; J2250; J2405; J2704; J3010; J7120